=== PATIENT | female | born 2000 | race Caucasian/White ===

== ENCOUNTER 2021-11-05 11:50 | Emergency (ER) | payer BC, SELFPAY ==
[2021-11-05 12:00] VITALS: BP 108/73; PULSE 100; RESP 20; TEMP 36.8; O2SAT 99
[2021-11-05 12:11] VITALS: BP 108/73; PULSE 100; RESP 20; TEMP 36.8; O2SAT 99
--- NOTE | 2021-11-05 13:15 | ED.URI ---
HPI - URI/Sore Throat General Chief Complaint: Upper Respiratory Infection Stated Complaint: stuffy nose cough Time Seen by Provider: 11/05/21 13:16 Source: patient, RN notes reviewed and old records reviewed Mode of arrival: ambulatory Limitations: no limitations History of Present Illness HPI Narrative: 21-year-old female who presents to [facility] with complaints of post nasal drainage, productive cough, nasal congestion and sore throat for the past 5 days. Patient states she has had COVID vaccinations and she took a home test last night for COVID that was negative. Patent states that her throat is very sore states increased pain with swallowing, rates it 5/10, cough is productive of light yellow tinged mucous. Patient reports no known fevers, chills, or sweats. Patient denies any wheezing or any acute feelings of dyspnea or difficulty with her breathing, SAO2 99% on room air. 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 MD elicited complaint: cough, sore throat, rhinorrhea and nasal congestion Pertinent past history: asthma Related Data Allergies Allergy/AdvReac Type Severity Reaction Status Date / Time hydrocodone Allergy Hives Verified 11/05/21 12:11 brompheniramine AdvReac Hyperactive Verified 11/05/21 12:11 [From Dimetapp (brompheniramine-PPA)] phenylpropanolamine AdvReac Hyperactive Verified 11/05/21 12:11 [From Dimetapp (brompheniramine-PPA)] Review of Systems Review of Systems: CONSTITUTIONAL: Denies fever, chills, or sweats. EYES: Denies visual changes, redness, or discharge. ENT: Positive for rhinorrhea, congestion, sore throat, no otalgia. CARDIOVASCULAR: Denies chest pain, palpitations, or edema. RESPIRATORY:positive cough no dyspnea. GASTROINTESTINAL: Denies abdominal pain, nausea, vomiting, or diarrhea. GENITOURINARY: Denies dysuria or hematuria. SKIN: Denies rash or itching. MUSCULOSKELETAL: Denies back pain, joint pain, or myalgia. NEUROLOGIC: Denies headache, numbness, or weakness. PSYCHIATRIC: Denies anxiety or depression. All systems reviewed & are unremarkable except as noted in HPI and below PMFSH Past Medical History Medical History (Updated 11/06/21 @ 15:21 by Gisselle Tadeo NP) Asthma Ear infection Urinary reflux Surgical History Surgical History (Updated 11/06/21 @ 15:14 by Gisselle Tadeo NP) History of placement of ear tubes Family History Family History (Updated 11/06/21 @ 15:19 by Gisselle Tadeo NP) Father Anxiety Mother Anxiety Seizures Other Emphysema lung Social History Social History (Updated 11/06/21 @ 15:19 by Gisselle Tadeo NP) Smoking status: Unknown if ever smoked Alcohol intake: current Alcohol use details: social Substance use: unknown Living arrangements: with family Gender identity (if verbalized by the patient): Female Comments At time of signature, agree with nursing past medical, surgical, social and family history. There is no relevant family history pertinent to the presenting complaint Exam Narrative: GENERAL: Well-appearing, well-nourished, and in no acute distress. HEAD: Normocephalic, atraumatic. EYES: PERRLA and EOMI. ENT: Nares red with clear rhinorrhea no epistaxis. Mucous membranes moist.TM's normal with good light reflex, throat red with no lesion or exudates, tonsils red and swollen.post nasal drainage. NECK: Supple.no lymphadenopathy CHEST: Clear to auscultation. No respiratory distress.cough with some production SAO2 99% on room air HEART: Regular rate and rhythm. No murmur heard. Normal peripheral pulses. ABDOMEN: Soft, nontender, nondistended, normal active bowel sounds. EXTREMITIES: Normal range of motion. No edema. SKIN: Warm, dry, no rash. NEURO: No focal deficits. Alert and oriented x3. Course Course Level of Care: Express Care Visit Vital Signs Vital signs: Vital Signs Temperature 36.8 C 11/05/21 12:00 Pulse Rate 100 11/05/21 12:00 Respiratory Rate 20 01/0
== END 2021-11-05 13:48 | disposition home or self-care (01) ==
PROVIDERS: Emergency Provider Registered Nurse
DX: J06.9 Acute upper respiratory infection, unspecified (principal); J03.90 Acute tonsillitis, unspecified; Z20.822 Contact with and (suspected) exposure to COVID-19; J45.909 Unspecified asthma, uncomplicated
CPT/HCPCS: 87081; 87426; 87880; 99213; C9803; G0463

== ENCOUNTER 2021-12-22 20:41 | Emergency (ER) | payer OTHER, BC, SELFPAY ==
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
[2021-12-22 20:57] VITALS: BP 123/84; PULSE 92; RESP 18; TEMP 36.8; O2SAT 100
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
[2021-12-22 21:50] VITALS: BP 113/80; PULSE 82; RESP 14; TEMP 36.6; O2SAT 99
[2021-12-22 23:22] VITALS: BP 105/65; PULSE 77; RESP 14; TEMP 36.6; O2SAT 100
== END 2021-12-22 23:05 | disposition home or self-care (01) ==
PROVIDERS: Emergency Provider Nurse Practitioner Family
DX: S09.90XA Unspecified injury of head, initial encounter (principal); S39.012A Strain of muscle, fascia and tendon of lower back, initial encounter; J45.909 Unspecified asthma, uncomplicated; V49.40XA Driver injured in collision with unspecified motor vehicles in traffic accident, initial encounter
CPT/HCPCS: 70450; 72125; 72131; 99284

== ENCOUNTER 2022-04-19 11:03 | Emergency (ER) | payer BC, SELFPAY ==
[2022-04-19 11:09] VITALS: BP 106/63; PULSE 67; RESP 14; TEMP 36.8; O2SAT 100
--- NOTE | 2022-04-19 11:38 | ED.EAR ---
HPI - Ear Problem General Chief complaint: Ear Stated complaint: left ear pain Time Seen by Provider: 04/19/22 11:30 Source: patient and RN notes reviewed Mode of arrival: ambulatory Limitations: no limitations History of Present Illness HPI Narrative: 21 year old female presents with concern for left ear pain. She reports history of surgery many years ago in that ear and history of infections. MD Complaint: ear pain Location: left ear Related Data Home Medications Medication Instructions Recorded Confirmed etonogestrel 68 mg subdermal 1 implant subdermal ONCE 04/19/22 04/19/22 implant (Nexplanon) Allergies Allergy/AdvReac Type Severity Reaction Status Date / Time hydrocodone Allergy Hives Verified 04/19/22 11:17 brompheniramine AdvReac Hyperactive Verified 04/19/22 11:17 [From Dimetapp (brompheniramine-PPA)] phenylpropanolamine AdvReac Hyperactive Verified 04/19/22 11:17 [From Dimetapp (brompheniramine-PPA)] Review of Systems Review of Systems: CONSTITUTIONAL: Denies malaise, chills, sweats, or fever. EYES: Denies visual changes, redness, or discharge. ENT: Denies rhinorrhea, congestion, sinus pain, and sore throat. Reports left ear pain CARDIOVASCULAR: Denies chest pain, palpitations, or edema. RESPIRATORY: Denies cough. Denies dyspnea. GASTROINTESTINAL: Denies abdominal pain, nausea, vomiting, diarrhea SKIN: Denies rash or itching. MUSCULOSKELETAL: Denies myalgia. NEUROLOGIC: Denies headache. All systems reviewed & are unremarkable except as noted in HPI and below PMFSH Past Medical History Medical History Asthma Ear infection Urinary reflux Surgical History Surgical History History of placement of ear tubes Family History Family History Father Anxiety Mother Anxiety Seizures Other Emphysema lung Social History Social History Smoking status: Unknown if ever smoked Alcohol intake: current Alcohol use details: social Substance use: unknown Gender identity (if verbalized by the patient): Female Comments At time of signature, agree with nursing past medical, surgical, social and family history. There is no relevant family history pertinent to the presenting complaint Exam Narrative: GENERAL: Well-appearing, well-nourished, and in no acute distress. HEAD: Normocephalic EYES: PERRLA, conjunctivae clear ENT: Nares clear, turbinates edematous, clear discharge. Mucous membranes moist. Right TM pearly bañuelos with dull light reflex, left TM erythematous and bulging; no tragal tenderness. Oropharynx not erythematous without lesions. Tonsils not enlarged and without exudate, no drooling, no hoarseness, no trismus, uvula midline. NECK: Supple. No lymphadenopathy CHEST: Clear to auscultation, breath sounds equal. No wheezing, rhonchi, rales, or stridor. No respiratory distress, speaks in full sentences. HEART: Regular rate and rhythm. No murmur heard. SKIN: Warm, dry, no rash. NEURO: Alert and oriented x3. PSYCH: Normal mood and affect Course Course Emergency Course: Patient is aware of diagnosis, understands and agrees to treatment plan. Anticipatory guidance given. Patient agrees to follow-up as directed and is aware of reasons to seek care at the emergency department. Portions of this record may have been created with voice recognition software Level of Care: Express Care Visit Vital Signs Vital signs: Vital Signs Temperature 98.2 F 04/19/22 11:09 Pulse Rate 67 04/19/22 11:09 Respiratory Rate 14 04/19/22 11:09 Blood Pressure 106/63 04/19/22 11:09 Pulse Oximetry 100 04/19/22 11:09 Oxygen Delivery Room Air 04/19/22 11:09 Temperature 98.2 F 04/19/22 11:09 Pulse Rate 67 04/19/22 11:09 Respiratory Rate 1
== END 2022-04-19 11:43 | disposition home or self-care (01) ==
PROVIDERS: Emergency Provider Nurse Practitioner
DX: H66.92 Otitis media, unspecified, left ear (principal); J45.909 Unspecified asthma, uncomplicated
CPT/HCPCS: 99213; G0463

== ENCOUNTER 2022-10-05 15:44 | Outpatient (CLI) | payer BC, OTHER, SELFPAY ==
[2022-10-05 16:40] LABS: Influenza A QL RT-PCR Negative (Negative); Influenza B QL RT-PCR Negative (Negative); RSV RNA, RT-PCR Negative (Negative); SARS-CoV-2 RNA PCR Negative
== END 2022-10-05 15:45 | disposition home or self-care (01) ==
LOC: ANHLAB 15:46
PROVIDERS: PCP Family Medicine; Visit Provider Nurse Practitioner Family
DX: R68.89 Other general symptoms and signs (principal); Z20.822 Contact with and (suspected) exposure to COVID-19
CPT/HCPCS: 87637

== ENCOUNTER 2022-10-10 10:05 | Emergency (ER) | payer BC, OTHER, SELFPAY ==
--- NOTE | ~2022-10-10 | US_ITS ---
EXAMINATION: US pelvic complete w TV DATE: 10/10/2022 13:22 INDICATION: Abnormal uterine bleeding Comparison:Heavy bleeding for 7 days. Patient on control. Nexplanon. TECHNIQUE: Multiple transabdominal and endovaginal sonographic images of the pelvis performed. FINDINGS: The uterus measures 8.2 x 4.1 x 5.1 cm. The endometrial complex measures 5 mm. There is flu id in the cervix. The right ovary measures 2.7 x 1.3 x 1 cm and the left ovary measures 2.4 x 1.1 x 1.1 cm. There are small follicles in each ovary. Normal doppler signal in both ovaries. There is no free fluid in the pelvis. There are no abnormal masses seen on either side. IMPRESSION: 1. Unremarkable pelvic ultrasound. Reviewed, dictated and finalized at location A. O RECORDER MECHANIC
[2022-10-10 10:21] VITALS: BP 111/70; PULSE 109; RESP 14; TEMP 36.8; O2SAT 98
[2022-10-10 10:40] LABS: Basophils Percent Auto 0.5 % (0.2-1.2); Eosinophils Absolute Auto 0.1 K/mm3 (0-0.3); Eosinophils Percent Auto 1.2 % (0-4.4); Hematocrit 43.6 % (37.0-47.0); Hemoglobin 15.1 g/dL (12.0-15.0); Immature Granulocyte Absolute 0.02 K/mm3 (0.00-0.031); Immature Granulocyte Percent A 0.3 % (0-0.5); Lymphocytes Absolute Auto 1.22 K/mm3 (0.9-3.2); Lymphocytes Percent Auto 16.2 % (18.3-44.2); Mean Corpuscular HGB Conc 34.6 g/dl (32-36); Mean Corpuscular Hemoglobin 31.2 pg (26-34); Mean Corpuscular Volume 90.1 fl (80-100); Mean Platelet Volume 10.2 fl (7.4-10.4); Monocytes Absolute Auto 0.4 K/mm3 (0.1-0.6); Monocytes Percent Auto 5.4 % (2.6-8.5); Neutrophils Absolute Auto 5.8 K/mm3 (1.3-6.7); Neutrophils Percent Auto 76.4 % (45.5-73.1); Platelet Count Result 361 k/mm3 (150-375); Red Blood Count 4.84 M/mm3 (4.2-5.4); Red Cell Distribution Width 12.3 % (11.5-14.5); White Blood Count 7.6 K/mm3 (4.5-10.0)
[2022-10-10 11:09] VITALS: BP 126/81; PULSE 96; RESP 18; TEMP 36.5; O2SAT 100
[2022-10-10 11:38] VITALS: BP 112/75; BP 112/83; PULSE 91; PULSE 98
[2022-10-10 11:39] VITALS: BP 114/83; PULSE 108
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
[2022-10-10 12:10] LABS: Alanine Aminotransferase 31 U/L (6-35); Albumin Level 4.8 g/dL (3.5-5.1); Alkaline Phosphatase 77 U/L (38-126); Anion Gap 10 mmol/L (8-16); Aspartate Amino Transferase 32 U/L (14-36); Bilirubin,Total 0.8 mg/dL (0.2-1.3); Blood Urea Nitrogen 8 mg/dL (7-17); Calcium 9.2 mg/dL (8.4-10.2); Carbon Dioxide 25 mmol/L (22-30); Chloride 107 mmol/L (98-107); Estimated CRCL calculation 100 ml/min; Estimated Glomerular Filt Rate > 60; Glucose 88 mg/dL (65-110); Lipase 57 U/L (23-300); Potassium 4.1 mmol/L (3.4-5.0); Sodium 142 mmol/L (137-145)
[2022-10-10] MEDS: KETOROLAC 15 MG/ML VIAL (*BKC) IV PUSH (12:12)
[2022-10-10] MEDS: SODIUM CHLORIDE 0.9% IV 1,000 ML 999 ML IV CONT (12:12)
[2022-10-10 12:34] LABS: Beta HCG Quantitative < 2.39 mIU/ML
[2022-10-10 15:04] VITALS: BP 97/62; PULSE 73; RESP 16; TEMP 36.8; O2SAT 98
[2022-10-10] MEDS: ONDANSETRON INJ 4 MG/2 ML VIAL IV PUSH (15:19)
== END 2022-10-10 15:33 | disposition home or self-care (01) ==
PROVIDERS: Emergency Medicine; Emergency Provider Physician Assistant; PCP Nurse Practitioner Family
DX: N93.9 Abnormal uterine and vaginal bleeding, unspecified (principal); J45.909 Unspecified asthma, uncomplicated
CPT/HCPCS: 36415; 76830; 76856; 80053; 81025; 83690; 84702; 85025; 96361; 96374; 96375; 99284; J0131; J1885; J2405; J7030

== ENCOUNTER 2022-12-21 08:59 | Emergency (ER) | payer BC, OTHER, SELFPAY ==
[2022-12-21] VITALS (19 sets, daily range): BP systolic 98–117; BP diastolic 65–93; PULSE 57–88; RESP 12–22; TEMP 36.8; O2SAT 95–100
--- NOTE | ~2022-12-21 | CT_ITS ---
EXAMINATION: CTA chest PE protocol DATE: 12/21/2022 11:56 INDICATION: Shortness of breath. Palpitations. Positive d-dimer. TECHNIQUE: Computed tomography (CT) pulmonary angiogram of the chest was performed with 100 mL Omnipa que-350 intravenous contrast. Additional 3D reconstructions utilizing coronal maximum intensity proje ction (MIP) were performed. Automated exposure control and iterative reconstruction technique were em ployed. The dose-length product was 142.27 mGy-cm. COMPARISON: None FINDINGS: Excellent contrast opacification of the pulmonary arteries. There is mild streak artifact from dense contrast in the superior vena cava and right atrium. Mild scattered respiratory motion artifact which decreases sensitivity in some of the smaller basilar subsegmental pulmonary arteries. No pulmonary e mbolism identified. No pneumonia, pulmonary edema or other pulmonary infiltrates. No pleural effusion or pneumothorax. Heart size is normal. No pericardial effusion. Thoracic aorta is normal in caliber with no dissection. Calcified right hilar lymph nodes consistent with old granulomatous disease. Visu alized upper abdomen is unremarkable. A few Schmorl's nodes at the lower thoracic and upper lumbar sp ine. IMPRESSION: 1. No pulmonary embolism or other acute cardiopulmonary disease. Reviewed, dictated and finalized at location A. CTOR OF CLOUD SERVICES
--- NOTE | ~2022-12-21 | XR_ITS ---
EXAMINATION: XR chest 2V DATE: 12/21/2022 09:35 INDICATION: Heart palpitations, diaphoresis TECHNIQUE: PA and lateral views of the chest are obtained. COMPARISON: 12/28/2005 FINDINGS: The lungs are free of acute opacities. No pleural effusion or pneumothorax. The cardiomedia stinal silhouette is normal. The visualized bones and soft tissues are unremarkable. IMPRESSION: 1. No acute cardiopulmonary abnormality. Reviewed, dictated and finalized at location B. O PERFORMER
--- NOTE | 2022-12-21 09:06 | ECG_ITS ---
Measurements Intervals [place] Rate: 84 P: 41 UT: 125 QRS: 39 QRSD: 83 T: 12 QT: 354 QTc: 420 Interpretive Statements SINUS RHYTHM WITH SINUS ARRHYTHMIA NORMAL ELECTROCARDIOGRAM NO PREVIOUS ECG AVAILABLE FOR COMPARISON Electronically Signed On 12-21-2022 15:25:38 STOVE MECHANIC by Henrik Gipson M.D.
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
[2022-12-21 09:24] LABS: Basophils Percent Auto 0.7 % (0.2-1.2); Eosinophils Absolute Auto 0.1 K/mm3 (0-0.3); Eosinophils Percent Auto 2.4 % (0-4.4); Hematocrit 41.1 % (37.0-47.0); Hemoglobin 14.3 g/dL (12.0-15.0); Immature Granulocyte Absolute 0.02 K/mm3 (0.00-0.031); Immature Granulocyte Percent A 0.4 % (0-0.5); Lymphocytes Absolute Auto 1.55 K/mm3 (0.9-3.2); Lymphocytes Percent Auto 28.4 % (18.3-44.2); Mean Corpuscular HGB Conc 34.8 g/dl (32-36); Mean Corpuscular Hemoglobin 31.6 pg (26-34); Mean Corpuscular Volume 90.9 fl (80-100); Mean Platelet Volume 10.2 fl (7.4-10.4); Monocytes Absolute Auto 0.4 K/mm3 (0.1-0.6); Monocytes Percent Auto 7.7 % (2.6-8.5); Neutrophils Absolute Auto 3.3 K/mm3 (1.3-6.7); Neutrophils Percent Auto 60.4 % (45.5-73.1); Platelet Count Result 340 k/mm3 (150-375); Red Blood Count 4.52 M/mm3 (4.2-5.4); Red Cell Distribution Width 11.9 % (11.5-14.5); White Blood Count 5.5 K/mm3 (4.5-10.0)
[2022-12-21 09:34] LABS: Alanine Aminotransferase 19 U/L (6-35); Albumin Level 4.5 g/dL (3.5-5.1); Alkaline Phosphatase 66 U/L (38-126); Anion Gap 4 mmol/L (8-16); Aspartate Amino Transferase 24 U/L (14-36); Bilirubin,Total 0.6 mg/dL (0.2-1.3); Blood Urea Nitrogen 12 mg/dL (7-17); Calcium 8.8 mg/dL (8.4-10.2); Carbon Dioxide 26 mmol/L (22-30); Chloride 104 mmol/L (98-107); Estimated CRCL calculation 100 ml/min; Estimated Glomerular Filt Rate > 60; Glucose 79 mg/dL (65-110); Potassium 3.5 mmol/L (3.4-5.0); Sodium 134 mmol/L (137-145)
[2022-12-21 09:46] LABS: Troponin I < 0.012 ng/mL (0.000-0.034)
[2022-12-21] MEDS: SODIUM CHLORIDE 0.9% IV 1,000 ML 999 ML IV CONT (10:17)
[2022-12-21 10:52] LABS: Thyroid Stimulating Hormone 0.897 uIU/mL (0.465-4.680)
--- NOTE | 2022-12-21 11:53 | PC.NURSE ---
Patient off unit to CT.
== END 2022-12-21 13:03 | disposition home or self-care (01) ==
PROVIDERS: Emergency Provider Physician Assistant; PCP Nurse Practitioner Family
DX: R00.2 Palpitations (principal); R06.81 Apnea, not elsewhere classified; J45.909 Unspecified asthma, uncomplicated
CPT/HCPCS: 36415; 71046; 71275; 80053; 81025; 83735; 84443; 84484; 85025; 85380; 93005; 96360; 99284; J7030; Q9967

== ENCOUNTER 2023-02-19 00:05 | Day surgery (SDC) | payer BC, OTHER, SELFPAY ==
[2023-02-12 12:31] VITALS: BMI 23.6
--- NOTE | 2023-02-12 12:36 | PC.NURSE ---
Report to the Outpatient Waiting Room, entrance under the green pavilion located off [facility], at time 0645 on date 02/19/23. Planned Procedure Time: 0845. Time changes happen often and if your time is changed the preop area will call you the afternoon before. - You and your visitor will be asked to self-screen and do not enter if you have any COVID symptoms. - A mask is optional within the hospital at this time. Patients may have clear liquids (water, carbonated beverages, clear teas, apple juice) until 3 hours prior to surgery with a maximum of 20 ounces. - No food from midnight until time of surgery Take the following medications with a SIP of water the morning of surgery: NONE DO NOT STOP ANY OF YOUR OTHER PRESCRIPTION MEDICATIONS PRIOR TO SURGERY?EXCEPT THE FOLLOWING Medications to discontinue per physician: N/A Date to take last dose: N/A Please no make-up, nail french, hairspray, perfume, deodorant, or body powder the day of surgery. No jewelry (including any body piercings) or valuables the day of surgery, leave them at home. Please take a shower or bath the night before, or the morning of, surgery with an antibacterial soap. Wear comfortable, loose fitting clothing. - Jewelry must be removed prior to entering the operating room. Rings and piercings that are not removed may be cut off. - The hospital will not accept responsibility for valuables. - Please leave all valuables, including medications, at home the day of surgery. If you are going home after surgery, a licensed rear load truck driver must drive you home. - NO public transportation without another adult if you receive anesthesia. - We recommend that an adult stay with you for 24 hours following discharge. - We also recommend that you do not drive, make important decision, drink alcoholic beverages, or take any drugs that were not prescribed by your health care provider for at least 24 hours after your discharge time. Follow any additional instructions given to you from your surgeon. If you or anyone in your household have experienced Covid symptoms in the past week, please notify your surgeon or the nurse liaison at the phone number below for possible testing. Telephone instructions given to PT - BENTLEY POWERS and asked if any additional questions and then verbalized understanding. Patient advised to call surgeon office or pre surgery nurse liaison [phone] if any additional questions.
--- NOTE | 2023-02-18 19:08 | PM.IMHP ---
H&P: HPI History of Present Illness Date/Time: 02/18/23 19:08 Chief Complaint: big tonsils can not breathe nasal obstruction nasal congestion septal deviation turbinate hypertrophy dysphagia sleep disordered breathing recurrent tonsillar Narrative: planned procedure Review of Systems Review of Systems: All systems reviewed & are unremarkable except as noted in HPI and below [facility] Past Medical History Medical History ADHD Asthma Depression Ear infection Nexplanon removal (~10/01/22) Urinary reflux Surgical History Surgical History History of ear surgery History of placement of ear tubes Hx of shoulder surgery right pectoral transfer, sternal head to scapula - volleyball injury Family History Family History Father Anxiety Depression Mother Anxiety Seizures Depression Grandparent Heart disease Asthma Cancer Depression Mother Depression Father Depression Other Breast cancer Emphysema lung Social History Social History Smoking status: Never smoker Alcohol intake: current Drinks per week: 1 Alcohol use details: social Substance use: never Substance use type: does not use Lack of Transportation: No Lack of Food: Never True Current Housing: I Have Housing Concerned About Future Housing: No Difficulty Paying Gas/Electric Bills: No Difficulty Paying for Meds: No Currently Unemployed: No Education: High School Diploma/GED Difficulty w/ Childcare or Family Care: No Living arrangements: with family Occupation/Education: occupation Gender identity (if verbalized by the patient): Female Sexual Orientation (if Verbalized by the Patient): Straight or Heterosexual Spiritual care concerns: No Agree to blood products: Yes Meds Home Medications and Allergies Home Medications Medication Instructions Recorded Confirmed Type ethynodiol diacetate-ethinyl 1 tablet PO DAILY #84 tabs 02/14/23 Rx estradiol 1 mg-35 mcg tablet (Zovia) Allergies Allergy/AdvReac Type Severity Reaction Status Date / Time hydrocodone Allergy Hives Verified 02/14/23 12:53 brompheniramine AdvReac Hyperactive Verified 02/14/23 12:53 [From Dimetapp (brompheniramine-PPA)] phenylpropanolamine AdvReac Hyperactive Verified 02/14/23 12:53 [From Dimetapp (brompheniramine-PPA)] tramadol AdvReac Other Verified 02/14/23 12:53 Exam Narrative: Septal deviation turbinate hypertrophy tonsillar hypertrophy Assessment and Plan Assessment and plan (1) Tonsillar hypertrophy: Code(s): J35.1 - Hypertrophy of tonsils Status: Acute Assessment and Plan: plan OR tonsillectomy septoplasty turbinate reduction with outfracture.? Risks discussed including bleeding infection postoperative bleeding pain of any structure damage to any structure above the clavicles damage to any structure by Anesthesia involved in the maintenance and/or induction of anesthesia.? Need for postoperative pain medication as well as antibiotics septal perforation change to nasal cosmesis saddle nose deformity CSF leak brain damage brain change in vision blindness failure to resolve symptoms patient voiced understanding agreed every risks discussed change in taste change in how they feel change in swallow damage to any structure by Anesthesia damage to any structure by myself need for further procedures 3-5% chance of postoperative bleeding blindness change in vision brain damage CSF leak septal perforation (2) Recurrent tonsillitis: Code(s): J03.91 - Acute recurrent tonsillitis, unspecified Status: Acute (3) Nasal septal deviation: Code(s): J34.2 - Deviated nasal septum Status: Acute (4) Hypertrophy of kingsley
--- NOTE | 2023-02-19 07:25 | WPDHPUPDATE1 ---
History and Physical Update Update Date/Time: 02/19/23 07:25 History and Physical has been reviewed, including an updated exam of the patient. There are NO changes in the patient's condition. Risks, benefits, and alternatives have been discussed and questions answered. Patient agrees to proceed with procedure.
[2023-02-19] MEDS: ACETAMINOPHEN 500 MG TABLET 1000 MG PO (07:55)
[2023-02-19 08:21] VITALS: BP 110/79; PULSE 82; RESP 14; TEMP 36.9; O2SAT 100
[2023-02-19] MEDS: LACTATED RINGERS 1,000 ML 30 ML IV CONT ×2 (08:25→11:52)
--- NOTE | 2023-02-19 08:37 | WPDANESEPPF ---
Anes - Initial Pre Proc Eval Procedure: Operation Date: 02/19/23 08:45 Proposed Procedures p Tonsillectomy - Jacek Rodriguez MD s Bilateral Inferior Turbinectomy with Outfracture - Jacek Rodriguez MD s Endoscope Septoplasty - Jacek Rodriguez MD Date/Time: 02/19/23 08:37 Surgeon: Jacek Rodriguez MD Pre Op Diagnosis: Hyp Tonsils, Dev Septum Tur Hypertrophy Patient Data Age: 22 Gender: F Height: 1.57 m Weight: 58.5 kg Last Vital Signs Temp 36.9 C 02/19/23 08:21 Pulse 82 02/19/23 08:21 Resp 14 02/19/23 08:21 BP 110/79 02/19/23 08:21 Pulse Ox 100 02/19/23 08:21 O2 Del Method Room Air 02/19/23 08:21 Allergies Allergy/AdvReac Type Severity Reaction Status Date / Time hydrocodone Allergy Hives Verified 02/14/23 12:53 brompheniramine AdvReac Hyperactive Verified 02/14/23 12:53 [From Dimetapp (brompheniramine-PPA)] phenylpropanolamine AdvReac Hyperactive Verified 02/14/23 12:53 [From Dimetapp (brompheniramine-PPA)] tramadol AdvReac Other Verified 02/14/23 12:53 Home Medications Medication Instructions Recorded Confirmed Type ethynodiol diacetate-ethinyl 1 tablet PO DAILY #84 tabs 02/14/23 Rx estradiol 1 mg-35 mcg tablet (Zovia) Patient hx anesthesia problems: none Family hx anesthesia problems: none Results Review: All pre-operative results and documents have been reviewed as part of the pre-operative evaluation. [facility]LY [facility] Past Medical History Medical History ADHD Asthma Depression Ear infection Nexplanon removal (~10/01/22) Urinary reflux Surgical History Surgical History History of ear surgery History of placement of ear tubes Hx of shoulder surgery right pectoral transfer, sternal head to scapula - volleyball injury Family History Family History Father Anxiety Depression Mother Anxiety Seizures Depression Grandparent Heart disease Asthma Cancer Depression Mother Depression Father Depression Other Breast cancer Emphysema lung Social History Social History Smoking status: Never smoker Alcohol intake: current Drinks per week: 1 Alcohol use details: social Substance use: never Substance use type: does not use Lack of Transportation: No Lack of Food: Never True Current Housing: I Have Housing Concerned About Future Housing: No Difficulty Paying Gas/Electric Bills: No Difficulty Paying for Meds: No Currently Unemployed: No Education: High School Diploma/GED Difficulty w/ Childcare or Family Care: No Living arrangements: with family Occupation/Education: occupation Gender identity (if verbalized by the patient): Female Sexual Orientation (if Verbalized by the Patient): Straight or Heterosexual Spiritual care concerns: No Agree to blood products: Yes Anes - Eval Final PreProcedure Day of Procedure 02/19/23 08:37 Patient weight: normal Heart: regular rate and rhythm Lungs: clear to auscultation Airway: Mallampati scale class 1 Neurological: alert and oriented Last oral intake: >/= 8 hours ASA classification: II Emergent: no Anesthetic plan: proceed Anesthesia type and monitoring: general ETT and standard monitoring Results Review: All pre-operative results and documents have been reviewed as part of the pre-operative evaluation. Informed Consent: The patient's anesthetic plan and its attendant risks and benefits were discussed with the patient/family/POA. Questions were solicited and answers provided to the satisfaction of the patient/family/POA.
[2023-02-19] MEDS: ceFAZolin 2 GM/D5W 50 ML 2 GM/50 ML BAG IVPB (09:19)
[2023-02-19] MEDS: OXYMETAZOLINE HCL 0.05% NAS 15 ML BTL (*BKC) 1 SPRAY NASAL (09:55)
--- NOTE | 2023-02-19 10:55 | SUR.OPER ---
Addendum entered by Autumn Cox RN 02/19/23 11:31: Patient was monitored by MANAGER PACU while surgeon was out of the room. Original Note: 10:39 Dr Rodriguez called to Emergency Department for Emergency Airway placement. 10:53 Dr Rodriguez back in surgical room to complete procedure.
[2023-02-19] MEDS: MUPIROCIN 2% OINT 22 GM TUBE 1 APPLIC EACH NARE (11:02)
[2023-02-19] MEDS: LIDO 1%/EPINEPHRINE 1:100,000 50 ML VIAL 20 ML INFILTRATE (11:26)
[2023-02-19 11:52] VITALS: BP 108/69; PULSE 82; RESP 18; TEMP 37.1; O2SAT 100
[2023-02-19 12:05] VITALS: BP 102/67; PULSE 88; RESP 16; O2SAT 99
[2023-02-19 12:15] VITALS: BP 104/68; PULSE 110; RESP 16; O2SAT 99
--- NOTE | 2023-02-19 12:24 | P.OP_ITS ---
Procedure Note - Detailed Date of Procedure 02/19/23 Pre-op Diagnosis Hyp Tonsils, Dev Septum Tur HypertrophySleep disordered breathing recurrent tonsillitis nasal obstruction nasal congestion Post-op Diagnosis Same Procedure Performed endoscopic assisted septoplasty inferior turbinate reduction with outfracture bilateral tonsillectomy bilateral Surgeon Jacek Rodriguez MD Anesthesia General Indications see above Findings severely deviated left nasal septum well reduced linear perforation over the spur covered nicely when Gant splints were placed turbinates very hypertrophied very bony well reduced good airway following procedure. Tonsils hypertrophic really endophytic blocking the airway minimal bleeding intraoperative Description of Procedure patient identified consent verified. Patient brought operating. Time-out performed. Patient prepped draped position procedure confirm 2nd time-out performed. 10 cc 1% local 1% lidocaine with [id number] parts epinephrine injected in the nasal septum bilaterally as well as inferior turbinates anteriorly. Afrin-soaked pledgets placed in the bilateral nasal passages allowed to sit for 5 minutes then removed. 0 degree endoscope utilized. Left-sided Mayfair incision made anterior to the deviation. Left nasal septal flap elevated with 7 [place] suction linear tear over the spur. Osteotome utilized to cross over right nasal septal flap elevated no perforation. Deviated septum removed with osteotome [employer] Morales forceps Pilar forceps. Mayfair incision closed with 2 interrupted 5 0 fast gut sutures. Lots redundant tissue was put back over the per for the linear perforation. Turbinates reduced in the submucosal plane using microdebrider the puncture point was cauterized with Bovie suction electrocautery at a setting of 15 for 2nd. Turbinates were then outfractured. Total blood loss about 22 cc. Bed was then rotated patient again prepped position. A sorry Gant splints were placed in the nose sutured anteriorly using a 3-0 interrupted nylon suture. McIvor mouth gag inserted revealing large tonsils. They were removed bilaterally in extracapsular plane using Bovie electrocautery at a setting of 10. Any bleeding vessels were cauterized using Bovie suction electrocautery at a setting of 12. In between tonsils a McIvor mouth gag was lowered to allow blood flow to return to the tongue. Following tonsillectomy the McIvor mouth gag was lowered and reopened 30 seconds later to reveal no further bleeding. Care the patient given Anesthesiology. McIvor mouth gag removed. I performed all dictated portions the procedure. No complications. Patient taken to PACU. Blood loss from the tonsils about 3 cc. Total blood loss about 25 cc. Estimated Blood Loss 25 Drains No Packing No Pathology None sent Complications No immediate complications Condition Stable Disposition PACU [facility] Billing Surgery - Charge Forward: Surgery Billing
[2023-02-19] MEDS: fentaNYL CITRATE INJ (*CRX) 100 MCG/2 ML VIAL 25 MCG IV PUSH ×3 (12:28→12:58)
[2023-02-19 12:45] VITALS: BP 104/81; PULSE 64; RESP 12; O2SAT 98
[2023-02-19 13:15] VITALS: BP 106/67; PULSE 80; RESP 16
[2023-02-19] MEDS: ONDANSETRON INJ 4 MG/2 ML VIAL IV PUSH (13:31)
== END 2023-02-19 13:52 | disposition home or self-care (01) ==
PROVIDERS: PCP Nurse Practitioner Family; Visit Provider Otolaryngology
PROC: (CPT 42826; principal; 2023-02-19 08:45)
PROC: (CPT 42826; 2023-02-19 08:45)
PROC: (CPT 30520; 2023-02-19 08:45)
DX: J35.1 Hypertrophy of tonsils (principal); J34.2 Deviated nasal septum; J34.3 Hypertrophy of nasal turbinates; R09.81 Nasal congestion; J34.89 Other specified disorders of nose and nasal sinuses
CPT/HCPCS: 42826; 30520; 30140; 88302; A9270; J0690; J1100; J2250; J2370; J2405; J2704; J3010; J7120

== ENCOUNTER 2023-02-28 12:31 | Outpatient (CLI) | payer BC, OTHER, SELFPAY ==
--- NOTE | 2023-02-28 12:38 | ECHO_ITS ---
Patient Info Name: Matilde Warren Age: 22 years : 2000 Gender: Female Ht: 62 in Wt: 123 lbs BSA: 1.57 m2 HR: 73 bpm BP: 117 / 78 mmHg Heart Rhythm: Sinus Rhythm Exam Date: 02/28/2023 12:45 PM Exam Location: [facility] Pulmonary Patient Status: Outpatient Admit Date: 02/28/2023 Staff Ordering Physician: Cholo Felton DO Director Business Management: Chuyita Pedroza RDCS Attending Provider: Cholo Felton DO Exam Type: CA echo doppler color flow Study Info Indications R42 - Dizziness and giddiness Complete two-dimensional, color flow and Doppler transthoracic echocardiogram is performed. Summary 1. Complete two-dimensional, color flow and Doppler transthoracic echocardiogram is performed. 2. Left ventricular chamber dimension is normal. 3. Left ventricular systolic function is normal, estimated at 60-65%. 4. The left ventricular diastolic function is normal. 5. E/e' 6 is not elevated. 6. There is trace aortic valve regurgitation. 7. There is trace mitral valve regurgitation. 8. There is trace tricuspid valve regurgitation. 9. No pulmonary hypertension, estimated pulmonary arterial systolic pressure is 23 mmHg. 10. There is trace pulmonic regurgitation. Left Ventricle E/e' 6 is not elevated. Left ventricular chamber dimension is normal. Left ventricular systolic function is normal, estimated at 60-65%. The left ventricular diastolic function is normal. Right Ventricle Right ventricular systolic function is normal and with normal TAPSE 2.4 cm. Right ventricular chamber dimension is normal. Left Atria Left atrial chamber dimension is normal. Right Atria Right atrial chamber dimension is normal. Aortic Valve The aortic valve is trileaflet. There is no aortic valve stenosis. There is trace aortic valve regurgitation. Pulmonic Valve There is trace pulmonic regurgitation. Mitral Valve There is no mitral valve stenosis. There is trace mitral valve regurgitation. Tricuspid Valve There is trace tricuspid valve regurgitation. No pulmonary hypertension, estimated pulmonary arterial systolic pressure is 23 mmHg. Pericardium/Pleural There is no pericardial effusion. Inferior Vena Cava Normal inferior vena cava with >50% collapse upon inspiration consistent with normal right atrial pressure, 5 mmHg. Aorta The aortic root size at the sinus of Valsalva is normal. Left Ventricular Outflow Tract Name Value Normal LVOT 2D LVOT Diameter 1.6 cm LVOT Doppler LVOT Peak Gradient 6 mmHg LVOT Mean Gradient 3 mmHg LVOT VTI 29 cm LVOT VTI/AV VTI Ratio 0.9 LVOT Stroke Volume 58 ml LVOT CO 2.5 l/min LVOT CI 1.6 l/min/m2 Pulmonic Valve Name Value Normal RVOT Doppler RVOT Peak Gradient 2 mmHg PV Doppler
== END 2023-02-28 12:32 | disposition home or self-care (01) ==
PROVIDERS: PCP Nurse Practitioner Family; Visit Provider Internal Medicine Cardiovascular Disease
DX: R42 Dizziness and giddiness (principal)
CPT/HCPCS: 93306

== ENCOUNTER 2023-03-15 00:29 | Day surgery (SDC) | payer BC, OTHER, SELFPAY ==
[2023-03-13 10:47] VITALS: BMI 23.6
--- NOTE | 2023-03-13 10:47 | PC.NURSE ---
Report to the Outpatient Waiting Room, entrance under the green pavilion located off [facility], at time 1100 on date 03/15/23. Planned Procedure Time: 1300. Time changes happen often and if your time is changed the preop area will call you the afternoon before. - You and your visitor will be asked to self-screen and do not enter if you have any COVID symptoms. - A mask is optional within the hospital at this time. Patients may have clear liquids (water, carbonated beverages, clear teas, apple juice) until 3 hours prior to surgery with a maximum of 20 ounces. - No food from midnight until time of surgery Take the following medications with a SIP of water the morning of surgery: NONE DO NOT STOP ANY OF YOUR OTHER PRESCRIPTION MEDICATIONS PRIOR TO SURGERY EXCEPT THE FOLLOWING Medications to discontinue per physician: N/A Date to take last dose: N/A Please no make-up, nail pashto, hairspray, perfume, deodorant, or body powder the day of surgery. No jewelry (including any body piercings) or valuables the day of surgery, leave them at home. Please take a shower or bath the night before, or the morning of, surgery with an antibacterial soap. Wear comfortable, loose fitting clothing. - Jewelry must be removed prior to entering the operating room. Rings and piercings that are not removed may be cut off. - The hospital will not accept responsibility for valuables. - Please leave all valuables, including medications, at home the day of surgery. If you are going home after surgery, a licensed cdl truck driver must drive you home. - NO public transportation without another adult if you receive anesthesia. - We recommend that an adult stay with you for 24 hours following discharge. - We also recommend that you do not drive, make important decision, drink alcoholic beverages, or take any drugs that were not prescribed by your health care provider for at least 24 hours after your discharge time. Follow any additional instructions given to you from your surgeon. If you or anyone in your household have experienced Covid symptoms in the past week, please notify your surgeon or the nurse liaison at the phone number below for possible testing. Telephone instructions given to PT - BENTLEY POWERS and asked if any additional questions and then verbalized understanding. Patient advised to call surgeon office or pre surgery nurse liaison [phone] if any additional questions.
--- NOTE | 2023-03-14 08:05 | PM.IMHP ---
H&P: HPI History of Present Illness Date/Time: 03/14/23 08:05 Chief Complaint: Nasal obstruction nasal congestion nasal bone fractures Narrative: planned procedure somewhat urgent Review of Systems Review of Systems: All systems reviewed & are unremarkable except as noted in HPI and below [facility] Past Medical History Medical History ADHD Asthma Depression Ear infection Nexplanon removal (~10/01/22) Urinary reflux Surgical History Surgical History History of ear surgery History of placement of ear tubes Hx of shoulder surgery right pectoral transfer, sternal head to scapula - volleyball injury Family History Family History Father Anxiety Depression Mother Anxiety Seizures Depression Grandparent Heart disease Asthma Cancer Depression Mother Depression Father Depression Other Breast cancer Emphysema lung Social History Social History Smoking status: Never smoker Alcohol intake: current Drinks per week: 1 Alcohol use details: social Substance use: never Substance use type: does not use Lack of Transportation: No Lack of Food: Never True Current Housing: I Have Housing Concerned About Future Housing: No Difficulty Paying Gas/Electric Bills: No Difficulty Paying for Meds: No Currently Unemployed: No Education: High School Diploma/GED Difficulty w/ Childcare or Family Care: No Living arrangements: with family Occupation/Education: occupation Gender identity (if verbalized by the patient): Female Sexual Orientation (if Verbalized by the Patient): Straight or Heterosexual Spiritual care concerns: No Agree to blood products: Yes Meds Home Medications and Allergies Home Medications Medication Instructions Recorded Confirmed Type ethynodiol diacetate-ethinyl 1 tablet PO DAILY #84 tabs 02/14/23 03/13/23 Rx estradiol 1 mg-35 mcg tablet (Zovia) mupirocin 2 % topical ointment 1 applic topical BID 03/13/23 03/13/23 History Allergies Allergy/AdvReac Type Severity Reaction Status Date / Time hydrocodone Allergy Hives Verified 03/13/23 10:46 brompheniramine AdvReac Hyperactive Verified 03/13/23 10:46 [From Dimetapp (brompheniramine-PPA)] phenylpropanolamine AdvReac Hyperactive Verified 03/13/23 10:46 [From Dimetapp (brompheniramine-PPA)] tramadol AdvReac Other Verified 03/13/23 10:46 Exam Narrative: a nasal deformity right concave left convex septal deviation on the left caudally Assessment and Plan Assessment and plan (1) Nasal bone fracture: Code(s): S02.2XXA - Fracture of nasal bones, initial encounter for closed fracture Status: Acute Assessment and Plan: OR for closed reduction nasal bone fracture possible revision septoplasty will have to examine intraoperatively. Risks were discussed including much higher rate of nonhealing much higher rate of cosmetic deformity given the caudal nature of the deviation failure to reduce nasal bone fractures with her not actually broken in this is due to edema. Bleeding infection septal perforation need for further per feed spur further procedures postoperative time off work time off school pain damage to any structure above the clavicles by myself damage to any structure in the induction and remains of anesthesia. (2) Nasal septal deviation: Code(s): J34.2 - Deviated nasal septum Status: Acute (3) Nasal trauma: Code(s): S09.92XA - Unspecified injury of nose, initial encounter Status: Acute
--- NOTE | 2023-03-14 16:03 | WPDANESEPPF ---
Anes - Initial Pre Proc Eval Procedure: Operation Date: 03/15/23 13:00 Proposed Procedures p Closed Reduction Nasal Fracture, - Jacek Rodriguez MD s Septoplasty - Jacek Rodriguez MD Date/Time: 03/14/23 16:03 Surgeon: Jacek Rodriguez MD Pre Op Diagnosis: nasal fx, septal deviation Patient Data Age: 22 Gender: F Height: 1.57 m Weight: 58.5 kg Allergies Allergy/AdvReac Type Severity Reaction Status Date / Time hydrocodone Allergy Hives Verified 03/13/23 10:46 brompheniramine AdvReac Hyperactive Verified 03/13/23 10:46 [From Dimetapp (brompheniramine-PPA)] phenylpropanolamine AdvReac Hyperactive Verified 03/13/23 10:46 [From Dimetapp (brompheniramine-PPA)] tramadol AdvReac Other Verified 03/13/23 10:46 Home Medications Medication Instructions Recorded Confirmed Type ethynodiol diacetate-ethinyl 1 tablet PO DAILY #84 tabs 02/14/23 03/13/23 Rx estradiol 1 mg-35 mcg tablet (Zovia) mupirocin 2 % topical ointment 1 applic topical BID 03/13/23 03/13/23 History Patient hx anesthesia problems: none Family hx anesthesia problems: none Results Review: All pre-operative results and documents have been reviewed as part of the pre-operative evaluation. [facility] Past Medical History Medical History ADHD Asthma Depression Ear infection Nexplanon removal (~10/01/22) Urinary reflux Surgical History Surgical History History of ear surgery History of placement of ear tubes Hx of shoulder surgery right pectoral transfer, sternal head to scapula - volleyball injury Family History Family History Father Anxiety Depression Mother Anxiety Seizures Depression Grandparent Heart disease Asthma Cancer Depression Mother Depression Father Depression Other Breast cancer Emphysema lung Social History Social History Smoking status: Never smoker Alcohol intake: current Drinks per week: 1 Alcohol use details: social Substance use: never Substance use type: does not use Lack of Transportation: No Lack of Food: Never True Current Housing: I Have Housing Concerned About Future Housing: No Difficulty Paying Gas/Electric Bills: No Difficulty Paying for Meds: No Currently Unemployed: No Education: High School Diploma/GED Difficulty w/ Childcare or Family Care: No Living arrangements: with family Occupation/Education: occupation Gender identity (if verbalized by the patient): Female Sexual Orientation (if Verbalized by the Patient): Straight or Heterosexual Spiritual care concerns: No Agree to blood products: Yes Anes - Eval Final PreProcedure Day of Procedure 03/14/23 16:03 Patient weight: normal Heart: regular rate and rhythm Lungs: clear to auscultation Airway: Mallampati scale class 1 Neurological: alert and oriented Last oral intake: >/= 8 hours ASA classification: II Emergent: no Anesthetic plan: proceed Anesthesia type and monitoring: general ETT and standard monitoring Results Review: All pre-operative results and documents have been reviewed as part of the pre-operative evaluation. Informed Consent: The patient's anesthetic plan and its attendant risks and benefits were discussed with the patient/family/POA. Questions were solicited and answers provided to the satisfaction of the patient/family/POA.
[2023-03-15] VITALS (10 sets, daily range): BP systolic 104–124; BP diastolic 65–95; PULSE 51–117; RESP 10–19; TEMP 36.1–36.6; O2SAT 99–100
--- NOTE | 2023-03-15 07:21 | WPDHPUPDATE1 ---
History and Physical Update Update Date/Time: 03/15/23 07:21 History and Physical has been reviewed, including an updated exam of the patient. There are NO changes in the patient's condition. Risks, benefits, and alternatives have been discussed and questions answered. Patient agrees to proceed with procedure. Other than possible closed reduction of septum as well
[2023-03-15] MEDS: ACETAMINOPHEN 500 MG TABLET 1000 MG PO (11:20)
[2023-03-15] MEDS: LACTATED RINGERS 1,000 ML 30 ML IV CONT ×2 (11:20→14:50)
[2023-03-15] MEDS: ceFAZolin 2 GM/D5W 50 ML 2 GM/50 ML BAG IVPB (13:07)
[2023-03-15] MEDS: LIDO 2%/EPINEPHRINE 1:100,000 50 ML VIAL 10 ML INFILTRATE (13:24)
[2023-03-15] MEDS: OXYMETAZOLINE HCL 0.05% NAS 15 ML BTL (*BKC) 1 SPRAY NASAL (13:24)
[2023-03-15] MEDS: MUPIROCIN 2% OINT 22 GM TUBE 1 APPLIC EACH NARE (13:31)
[2023-03-15] MEDS: fentaNYL CITRATE INJ (*CRX) 100 MCG/2 ML VIAL 25 MCG IV PUSH ×6 (14:38→15:29)
--- NOTE | 2023-03-15 14:49 | W.PM.PROC2 ---
Procedure Note - Detailed Date of Procedure 03/15/23 Pre-op Diagnosis nasal fx, septal deviation Post-op Diagnosis Same Procedure Performed Closed reduction nasal septal fracture revision septoplasty Surgeon Jacek Rodriguez MD Anesthesia General Indications see above Findings caudal septum was again broken deviated able to be reduced had to revise removed small piece of cartilage much better airway right nasal bone outfractured left infractured patient tolerated procedure well minimal bleeding Description of Procedure patient identified consent verified. Patient brought operating. Time-out performed. General anesthesia induced endotracheal tube secured. Patient prepped reposition procedure confirmed 2nd time-out performed. Afrin-soaked pledgets placed for 5 minutes then removed. [place] elevator utilized to outfracture right nasal bone left infractured. Gelfoam placed in a taco fashion beneath the right nasal bone adding support. [place] incision made after injection of 3 cc 1% lidocaine 1 100,000 parts epinephrine new deviated caudal septal cartilage removed with osteotome and 15 blade. Johnnie incision closed with 3 interrupted 5 0 fast gut sutures. Gant splints trimmed then placed sutured anteriorly using a mattressed 3-0 nylon suture. I performed all dictated portions of procedure no complications blood loss 5 cc. Patient taken to PACU. Estimated Blood Loss 5 Drains No Packing Yes ( Gelfoam) Pathology None sent Complications No immediate complications Condition Stable Disposition PACU [facility] Billing Surgery - Charge Forward: Surgery Billing
[2023-03-15] MEDS: ONDANSETRON INJ 4 MG/2 ML VIAL IV PUSH (15:45)
[2023-03-15] MEDS: oxyCODONE HCL (*CRX) 5 MG TAB IR PO (15:55)
== END 2023-03-15 16:57 | disposition home or self-care (01) ==
PROVIDERS: PCP Nurse Practitioner Family; Visit Provider Otolaryngology
PROC: 0NSBXZZ Reposition Nasal Bone, External Approach (ICD-10-PCS; CPT 21315; principal; 2023-03-15 13:00)
PROC: (CPT 30520; 2023-03-15 13:00)
DX: S02.2XXA Fracture of nasal bones, initial encounter for closed fracture (principal); J34.2 Deviated nasal septum; X58.XXXA Exposure to other specified factors, initial encounter
CPT/HCPCS: 21320; 30520; A9270; J0330; J0690; J1100; J2250; J2405; J2704; J3010; J7120

== ENCOUNTER 2023-04-25 20:51 | Emergency (ER) | payer BC, OTHER, SELFPAY ==
--- NOTE | ~2023-04-25 | CT_ITS ---
EXAMINATION: CT facial bones wo con DATE: 04/25/2023 22:10 INDICATION: Nose trauma, can't breath thru nose . TECHNIQUE: Computed tomography (CT) of the facial bones and maxillofacial region was performed withou t intravenous contrast. Automated exposure control and iterative reconstruction technique were employ ed. The dose-length product was 297.68 mGy-cm. COMPARISON: None. FINDINGS: Soft Tissues: No significant superficial soft tissue swelling. Facial bones: Minimal fragmentation of the maxillary spine. No other definite or potential fracture detected. No lytic or blastic process. Eyes: The globes are intact. The soft tissue planes of the orbits are maintained. Paranasal Sinuses: Moderate leftward bowing of the cartilaginous nasal septum. Soft tissue thickening of the anterosuperior aspect of the nasal septum up to 1 cm. The nasal passages remain patent. The v isualized aerated spaces are clear. Foreign Bodies: No radiopaque foreign bodies. Other Findings: None. IMPRESSION: Mild fragmentation of the maxillary spine, may represent a small minimally displaced fracture if acco mpanied by acute pain/tenderness. Soft tissue thickening of the anterosuperior nasal septum may represent mucosal edema or a small sept al hematoma, correlate with direct visualization. Reviewed, dictated and finalized at location K. IMPRESSION: Mild fragmentation of the maxillary spine, may represent a small minimally disp laced fracture if accompanied by acute pain/tenderness. Soft tissue thickening of the anterosuperior nasal septum may represent mucosal edema or a small septal hematoma, correlate with direct visualization.
[2023-04-25 20:57] VITALS: BP 116/61; PULSE 93; RESP 16; TEMP 36.6; O2SAT 98
--- NOTE | 2023-04-25 23:55 | ED.GENADULT ---
HPI - General Adult General Chief complaint: Head Injury Stated complaint: nose pain Time Seen by Provider: 04/25/23 23:38 History of Present Illness HPI narrative: This is a 22-year-old female presenting ED after her dog jumped into her face and hit her in the nose. Patient has had multiple nasal bone fractures in the past. She follows with Dr. Rodriguez and has a good relationship with him. She says she is having difficulty breathing through the right nostril. No other injuries. Related Data Allergies Allergy/AdvReac Type Severity Reaction Status Date / Time hydrocodone Allergy Hives Verified 04/04/23 13:31 brompheniramine AdvReac Hyperactive Verified 04/04/23 13:31 [From Dimetapp (brompheniramine-PPA)] phenylpropanolamine AdvReac Hyperactive Verified 04/04/23 13:31 [From Dimetapp (brompheniramine-PPA)] tramadol AdvReac Other Verified 04/04/23 13:31 PMFSH Past Medical History Medical History ADHD Asthma Depression Ear infection Nexplanon removal (~10/01/22) Urinary reflux Surgical History Surgical History History of ear surgery History of placement of ear tubes Hx of shoulder surgery right pectoral transfer, sternal head to scapula - volleyball injury Family History Family History Father Anxiety Depression Mother Anxiety Seizures Depression Grandparent Heart disease Asthma Cancer Depression Mother Depression Father Depression Other Breast cancer Emphysema lung Social History Social History Smoking status: Never smoker Alcohol intake: current Drinks per week: 1 Alcohol use details: social Substance use: never Substance use type: does not use Lack of Transportation: No Lack of Food: Never True Current Housing: I Have Housing Concerned About Future Housing: No Difficulty Paying Gas/Electric Bills: No Difficulty Paying for Meds: No Currently Unemployed: No Education: High School Diploma/GED Difficulty w/ Childcare or Family Care: No Living arrangements: with family Occupation/Education: occupation Gender identity (if verbalized by the patient): Female Sexual Orientation (if Verbalized by the Patient): Straight or Heterosexual Spiritual care concerns: No Agree to blood products: Yes Exam Narrative: APPEARANCE: No apparent distress. Head: atraumatic. EYES: EOMI, NOSE: No significant ecchymosis or swelling. No evidence of septal hematoma. NECK: Trachea midline RESPIRATORY: No increased rate of breathing CARDIOVASCULAR: RRR, ABDOMINAL: Non-distended MUSCULOSKELETAl: No obvious deformities NEURO: Alert. Moving 4/4 extremities SKIN:: Warm, dry. Normal color PSYCHIATRIC: Normal affect Course Vital Signs Vital signs: Vital Signs Temperature 97.8 F 04/25/23 20:57 Pulse Rate 93 04/25/23 20:57 Respiratory Rate 16 04/25/23 20:57 Blood Pressure 116/61 04/25/23 20:57 Pulse Oximetry 98 04/25/23 20:57 Oxygen Delivery Room Air 04/25/23 20:57 Temperature 97.8 F 04/25/23 20:57 Pulse Rate 93 04/25/23 20:57 Respiratory Rate 16 04/25/23 20:57 Blood Pressure 116/61 04/25/23 20:57 Pulse Oximetry 98 04/25/23 20:57 Oxygen Delivery Room Air 04/25/23 20:57 Medical Decision Making MDM Narrative Medical decision making narrative: -Presentation: 22-year-old female hit in the nose by her dog concern for nasal bone fracture. 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 Lives with her aunt -External Chart Review: none -[facility]x from [facility]
[2023-04-26] MEDS: ACETAMINOPHEN 500 MG TABLET 1000 MG PO (00:05)
[2023-04-26] MEDS: DEXAMETHASONE 2 MG TABLET 12 MG PO (00:06)
[2023-04-26] MEDS: IBUPROFEN 400 MG TABLET 800 MG PO (00:06)
== END 2023-04-26 00:20 | disposition home or self-care (01) ==
PROVIDERS: Emergency Provider Emergency Medicine; PCP Nurse Practitioner Family
DX: S09.92XA Unspecified injury of nose, initial encounter (principal); J45.909 Unspecified asthma, uncomplicated; W54.1XXA Struck by dog, initial encounter
CPT/HCPCS: 70486; 99284; A9270; J8540

== ENCOUNTER 2023-04-30 00:02 | Day surgery (SDC) | payer BC, OTHER, SELFPAY ==
[2023-04-29 15:53] VITALS: BMI 23.0
--- NOTE | 2023-04-29 15:56 | PC.NURSE ---
Report to the Outpatient Waiting Room, entrance under the green pavilion located off [facility], at time 1215 on date 04/30/23. Planned Procedure Time: 1415. Time changes happen often and if your time is changed the preop area will call you the afternoon before. - You and your visitor will be asked to self-screen and do not enter if you have any COVID symptoms. - A mask is optional within the hospital at this time. Patients may have clear liquids (water, carbonated beverages, clear teas, apple juice) until 3 hours prior to surgery with a maximum of 20 ounces. - No food from midnight until time of surgery Take the following medications with a SIP of water the morning of surgery: CONTROL DO NOT STOP ANY OF YOUR OTHER PRESCRIPTION MEDICATIONS PRIOR TO SURGERY ?EXCEPT THE FOLLOWING Medications to discontinue per physician: N/A Date to take last dose: N/A Please no make-up, nail greek, hairspray, perfume, deodorant, or body powder the day of surgery. No jewelry (including any body piercings) or valuables the day of surgery, leave them at home. Please take a shower or bath the night before, or the morning of, surgery with an antibacterial soap. Wear comfortable, loose fitting clothing. - Jewelry must be removed prior to entering the operating room. Rings and piercings that are not removed may be cut off. - The hospital will not accept responsibility for valuables. - Please leave all valuables, including medications, at home the day of surgery. If you are going home after surgery, a licensed straddle bug driver must drive you home. - NO public transportation without another adult if you receive anesthesia. - We recommend that an adult stay with you for 24 hours following discharge. - We also recommend that you do not drive, make important decision, drink alcoholic beverages, or take any drugs that were not prescribed by your health care provider for at least 24 hours after your discharge time. Follow any additional instructions given to you from your surgeon. If you or anyone in your household have experienced Covid symptoms in the past week, please notify your surgeon or the nurse liaison at the phone number below for possible testing. Telephone instructions given to PT - BENTLEY POWERS and asked if any additional questions and then verbalized understanding. Patient advised to call surgeon office or pre surgery nurse liaison [phone] if any additional questions.
--- NOTE | 2023-04-29 16:57 | PM.IMHP ---
H&P: HPI History of Present Illness Date/Time: 04/29/23 16:57 Chief Complaint: nasal septal fracture nasal bone fracture septal deviation Narrative: planned procedure Review of Systems Review of Systems: All systems reviewed & are unremarkable except as noted in HPI and below [facility] Past Medical History Medical History ADHD Asthma Depression Ear infection Nexplanon removal (~10/01/22) Urinary reflux Surgical History Surgical History History of ear surgery History of placement of ear tubes Hx of shoulder surgery right pectoral transfer, sternal head to scapula - volleyball injury Family History Family History Father Anxiety Depression Mother Anxiety Seizures Depression Grandparent Heart disease Asthma Cancer Depression Mother Depression Father Depression Other Breast cancer Emphysema lung Social History Social History Smoking status: Never smoker Alcohol intake: current Drinks per week: 1 Alcohol use details: social Substance use: never Substance use type: does not use Lack of Transportation: No Lack of Food: Never True Current Housing: I Have Housing Concerned About Future Housing: No Difficulty Paying Gas/Electric Bills: No Difficulty Paying for Meds: No Currently Unemployed: No Education: High School Diploma/GED Difficulty w/ Childcare or Family Care: No Living arrangements: with family Occupation/Education: occupation Gender identity (if verbalized by the patient): Female Sexual Orientation (if Verbalized by the Patient): Straight or Heterosexual Spiritual care concerns: No Agree to blood products: Yes Meds Home Medications and Allergies Home Medications Medication Instructions Recorded Confirmed Type ethynodiol diacetate-ethinyl 1 tablet PO DAILY #84 tabs 02/14/23 04/29/23 Rx estradiol 1 mg-35 mcg tablet (Zovia) Allergies Allergy/AdvReac Type Severity Reaction Status Date / Time hydrocodone Allergy Hives Verified 04/29/23 15:52 brompheniramine AdvReac Hyperactive Verified 04/29/23 15:52 [From Dimetapp (brompheniramine-PPA)] phenylpropanolamine AdvReac Hyperactive Verified 04/29/23 15:52 [From Dimetapp (brompheniramine-PPA)] tramadol AdvReac Other Verified 04/29/23 15:52 Exam Narrative: nasal bone right concavity left convexity left septal deviation Assessment and Plan Assessment and plan (1) Nasal bone fracture: Code(s): S02.2XXA - Fracture of nasal bones, initial encounter for closed fracture Status: Acute Assessment and Plan: up plan or closed reduction nasal bone endoscopic assisted septoplasty hope things to everything of frontal the headlight. We exact same procedure performed 1 or 2 months ago. Risks were discussed including bleeding infection blindness change in vision CF the S CSF leak brain brain damage nasal septal perforation significant risk of cosmetic deformity given the amount times we have trimmed the caudal cartilage. Patient voiced understanding and agreed. (2) Nasal obstruction: Code(s): J34.89 - Other specified disorders of nose and nasal sinuses Status: Acute (3) Nasal congestion: Code(s): R09.81 - Nasal congestion Status: Acute (4) Hypertrophy of both inferior nasal turbinates: Code(s): J34.3 - Hypertrophy of nasal turbinates Status: Acute (5) Nasal septal deviation: Code(s): J34.2 - Deviated nasal septum Status: Acute
[2023-04-30] VITALS (8 sets, daily range): BP systolic 113–127; BP diastolic 77–94; PULSE 55–99; RESP 14–20; TEMP 36.3–36.5; O2SAT 100; BMI 22.0
--- NOTE | 2023-04-30 07:15 | WPDHPUPDATE1 ---
History and Physical Update Update Date/Time: 04/30/23 07:15 History and Physical has been reviewed, including an updated exam of the patient. There are NO changes in the patient's condition. Risks, benefits, and alternatives have been discussed and questions answered. Patient agrees to proceed with procedure.
[2023-04-30] MEDS: LACTATED RINGERS 1,000 ML 30 ML IV CONT (12:45)
[2023-04-30] MEDS: ACETAMINOPHEN 500 MG TABLET 1000 MG PO (12:53)
--- NOTE | 2023-04-30 13:34 | WPDANESEPPF ---
Anes - Initial Pre Proc Eval Procedure: Operation Date: 04/30/23 14:15 Proposed Procedures p Closed Reduction Nasal Fracture - Jacek Rodriguez MD s Septoplasty - Jacek Rodriguez MD Date/Time: 04/30/23 13:34 Surgeon: Jacek Rodriguez MD Pre Op Diagnosis: Nasal Fx, Devated Septum Patient Data Age: 22 Gender: F Height: 1.57 m Weight: 54.7 kg Last Vital Signs Temp 36.5 C 04/30/23 12:12 Pulse 99 04/30/23 12:12 Resp 16 04/30/23 12:12 BP 113/90 04/30/23 12:12 Pulse Ox 100 04/30/23 12:12 O2 Del Method Room Air 04/30/23 12:12 Allergies Allergy/AdvReac Type Severity Reaction Status Date / Time hydrocodone Allergy Hives Verified 04/30/23 12:37 brompheniramine AdvReac Hyperactive Verified 04/30/23 12:37 [From Dimetapp (brompheniramine-PPA)] phenylpropanolamine AdvReac Hyperactive Verified 04/30/23 12:37 [From Dimetapp (brompheniramine-PPA)] tramadol AdvReac Other Verified 04/30/23 12:37 Home Medications Medication Instructions Recorded Confirmed Type ethynodiol diacetate-ethinyl 1 tablet PO DAILY #84 tabs 02/14/23 04/30/23 Rx estradiol 1 mg-35 mcg tablet (Zovia) Patient hx anesthesia problems: none Family hx anesthesia problems: none Results Review: All pre-operative results and documents have been reviewed as part of the pre-operative evaluation. [facility] Past Medical History Medical History ADHD Asthma Depression Ear infection Nexplanon removal (~10/01/22) Urinary reflux Surgical History Surgical History History of ear surgery History of placement of ear tubes Hx of shoulder surgery right pectoral transfer, sternal head to scapula - volleyball injury Family History Family History Father Anxiety Depression Mother Anxiety Seizures Depression Grandparent Heart disease Asthma Cancer Depression Mother Depression Father Depression Other Breast cancer Emphysema lung Social History Social History Smoking status: Never smoker Alcohol intake: current Drinks per week: 1 Alcohol use details: social Substance use: never Substance use type: does not use Lack of Transportation: No Lack of Food: Never True Current Housing: I Have Housing Concerned About Future Housing: No Difficulty Paying Gas/Electric Bills: No Difficulty Paying for Meds: No Currently Unemployed: No Education: High School Diploma/GED Difficulty w/ Childcare or Family Care: No Living arrangements: with family Occupation/Education: occupation Gender identity (if verbalized by the patient): Female Sexual Orientation (if Verbalized by the Patient): Straight or Heterosexual Spiritual care concerns: No Agree to blood products: Yes Anes - Eval Final PreProcedure Day of Procedure 04/30/23 13:34 Patient weight: normal Heart: regular rate and rhythm Lungs: clear to auscultation Airway: Mallampati scale class 1 Neurological: alert and oriented Last oral intake: >/= 8 hours ASA classification: II Emergent: no Anesthetic plan: proceed Anesthesia type and monitoring: general ETT and standard monitoring Results Review: All pre-operative results and documents have been reviewed as part of the pre-operative evaluation. Informed Consent: The patient's anesthetic plan and its attendant risks and benefits were discussed with the patient/family/POA. Questions were solicited and answers provided to the satisfaction of the patient/family/POA.
[2023-04-30] MEDS: ceFAZolin 2 GM/D5W 50 ML 2 GM/50 ML BAG IVPB (14:00)
[2023-04-30] MEDS: LIDO 1%/EPINEPHRINE 1:100,000 50 ML VIAL INFILTRATE (14:16)
[2023-04-30] MEDS: OXYMETAZOLINE HCL 0.05% NAS 15 ML BTL (*BKC) 1 SPRAY NASAL (14:20)
[2023-04-30] MEDS: fentaNYL CITRATE INJ (*CRX) 100 MCG/2 ML VIAL 25 MCG IV PUSH ×2 (15:34→15:35)
--- NOTE | 2023-04-30 15:50 | P.OP_ITS ---
Procedure Note - Detailed Date of Procedure 04/30/23 Pre-op Diagnosis Nasal Fx, Devated Septum Post-op Diagnosis Same Procedure Performed Closed reduction nasal septal fracture septoplasty Surgeon Jacek Rodriguez MD Anesthesia General Indications see above Findings deviated left septum corrected again although the caudal septum is getting very very thin right nasal bone outfractured. Description of Procedure Patient identified consent verified preop. Patient brought operating. Time- out performed. General anesthesia induced endotracheal tube secured. Patient prepped draped position procedure confirmed. Second time-out performed. Right nasal bone was was fractured was able to be outfractured slightly. However I believe a lot of a cosmetic concern was due to a deviated dorsal septum left side was injected [place] incision made small amount of caudal septal cartilage trimmed Johnnie incision closed with 3 interrupted 5 0 fast gut sutures. Gant splints placed sutured anteriorly using a 3-0 mattressed nylon suture. Concern is that the patient may truly need broadcast director operations grafts to keep the caudal septum straight. Blood loss about 5 cc. Patient tolerated the procedure well no complications packing placed splint placed above the nose as well. Estimated Blood Loss 5 Drains No Packing Yes ( Gelfoam) Pathology None sent Complications No immediate complications Condition Stable Disposition PACU [facility] Billing Surgery - Charge Forward: Surgery Billing
[2023-04-30] MEDS: oxyCODONE HCL (*CRX) 5 MG TAB IR PO (16:14)
== END 2023-04-30 17:12 | disposition home or self-care (01) ==
PROVIDERS: PCP Nurse Practitioner Family; Visit Provider Otolaryngology
PROC: 0NSBXZZ Reposition Nasal Bone, External Approach (ICD-10-PCS; CPT 21315; principal; 2023-04-30 14:15)
PROC: (CPT 30520; 2023-04-30 14:15)
DX: S02.2XXA Fracture of nasal bones, initial encounter for closed fracture (principal); J34.2 Deviated nasal septum; R09.81 Nasal congestion; J34.89 Other specified disorders of nose and nasal sinuses; W54.1XXA Struck by dog, initial encounter
CPT/HCPCS: 21320; 30520; A9270; J0330; J0690; J1100; J2250; J2405; J2704; J3010; J7120

== ENCOUNTER 2023-07-02 17:09 | Outpatient (CLI) | payer BC, OTHER, SELFPAY ==
--- NOTE | ~2023-07-02 | XR_ITS ---
XR chest 2V DATE: 07/02/2023 17:32 INDICATION: Shortness of breath for one week TECHNIQUE: PA and lateral views COMPARISON: 07/02/2023 PA and lateral chest FINDINGS: Normal heart size. No hilar or mediastinal enlargement. No pulmonary infiltrate or consolid ation, pleural effusion or pulmonary vascular congestion or pneumothorax is detected. IMPRESSION: Negative Reviewed, dictated and finalized at location L. IMPRESSION: Negative
== END 2023-07-02 17:10 | disposition home or self-care (01) ==
PROVIDERS: PCP Nurse Practitioner Family; Visit Provider Family Medicine
DX: R06.02 Shortness of breath (principal)
CPT/HCPCS: 71046

== ENCOUNTER 2023-07-16 15:11 | Emergency (ER) | payer BC, OTHER, SELFPAY ==
[2023-07-16 15:42] VITALS: BP 132/77; PULSE 74; RESP 16; TEMP 36.8; O2SAT 100
--- NOTE | 2023-07-16 18:23 | ED.GENADULT ---
HPI - General Adult General Chief complaint: Extremity Injury, Upper Stated complaint: possible finger infection Time Seen by Provider: 07/16/23 18:08 History of Present Illness HPI narrative: 23-year-old female present emergency department for evaluation of an infection of her left index finger. Patient reports Saturday she was injured by a mechanical bull resulting in an abrasion to the finger. Patient did develop some redness and swelling at the PIP joint. Patient reports that she did have redness that tracks from her index finger of her forearm. Patient initially presented to the prompt care and was referred to the emergency department. Upon evaluation in the emergency department patient's erythema has improved and patient has no tracking of her left arm. Patient does have some erythema at the PIP joint of the left index finger. Patient has normal range of motion of the left index finger. Related Data Allergies Allergy/AdvReac Type Severity Reaction Status Date / Time hydrocodone Allergy Hives Verified 07/16/23 17:43 brompheniramine AdvReac Hyperactive Verified 07/16/23 17:43 [From Dimetapp (brompheniramine-PPA)] phenylpropanolamine AdvReac Hyperactive Verified 07/16/23 17:43 [From Dimetapp (brompheniramine-PPA)] tramadol AdvReac Other Verified 07/16/23 17:43 Review of Systems Review of Systems: All systems reviewed & are unremarkable except as noted in HPI and below PMFSH Past Medical History Medical History (Updated 07/17/23 @ 00:01 by Tamika Dabradley) ADHD Allergies Asthma Contraception management Depression Dizziness Ear infection Enlarged tonsils Hypertrophy of both inferior nasal turbinates Nasal bone fracture Nasal bone fracture Nasal congestion Nasal crusting Nasal crusting Nasal obstruction Nasal septal deviation Nasal septal deviation Nasal trauma Nexplanon removal (~10/01/22) Palpitations Post covid-19 condition, unspecified Post-operative pain Post-operative pain Post-operative pain Post-operative pain Shoulder pain, right Syncope and collapse Tonsillar hypertrophy Urinary reflux Surgical History Surgical History History of ear surgery History of placement of ear tubes Hx of shoulder surgery right pectoral transfer, sternal head to scapula - volleyball injury Family History Family History Father Anxiety Depression Mother Anxiety Seizures Depression Grandparent Heart disease Asthma Cancer Depression Mother Depression Father Depression Other Breast cancer Emphysema lung Social History Social History Social History: Caffeine- occasionally Smoking status: Light tobacco smoker Tobacco type: e-cigarettes/vaping Alcohol intake: current Drinks per week: 1 Alcohol use details: social Substance use: never Substance use type: does not use Lack of Transportation: No Lack of Food: Never True Current Housing: I Have Housing Concerned About Future Housing: No Difficulty Paying Gas/Electric Bills: No Difficulty Paying for Meds: No Currently Unemployed: No Education: High School Diploma/GED Difficulty w/ Childcare or Family Care: No Living arrangements: with family Occupation/Education: occupation Gender identity (if verbalized by the patient): Female Sexual Orientation (if Verbalized by the Patient): Straight or Heterosexual Spiritual care concerns: No Agree to blood products: Yes Exam Narrative: APPEARANCE: Well appearing, no pain, no distress, well-nourished. HEAD: normocephalic, atraumatic. EYES: PERRLA/EOMI, conjunctivae clear. NOSE: Normal no drainage RESPIRATORY: Airway patent, respirations nonlabored. Clear to auscultation bilaterally, no rales, rhonchi, wheezing. CARDIOVASCULAR: Regular rate and rhythm without murmurs rubs
[2023-07-16] MEDS: ceFAZolin 1 GM/NS 50 ML 1 GM/50 ML BAG IVPB (18:39)
[2023-07-16 19:09] VITALS: BP 130/70; PULSE 71; RESP 20; O2SAT 100
== END 2023-07-16 19:10 | disposition home or self-care (01) ==
PROVIDERS: Emergency Provider Emergency Medicine; PCP Family Medicine
DX: L03.012 Cellulitis of left finger (principal); J45.909 Unspecified asthma, uncomplicated; F17.290 Nicotine dependence, other tobacco product, uncomplicated
CPT/HCPCS: 96365; 99284; J0690

== ENCOUNTER 2023-07-17 12:10 | Outpatient (CLI) | payer BC, OTHER, SELFPAY ==
--- NOTE | ~2023-07-17 | XR_ITS ---
EXAMINATION: XR hand LT min 3V DATE: 07/17/2023 12:28 INDICATION: Left hand pain. Injury. TECHNIQUE: 3 views of left hand were obtained. COMPARISON: None. FINDINGS: Bone alignment is normal. No fracture. There is mild osteoarthritis of first interphalangea l joint. IMPRESSION: 1. No fracture. Reviewed, dictated and finalized at location A. IMPRESSION: 1. No fracture.
[2023-07-17 14:14] LABS: Basophils Percent Auto 0.7 % (0.2-1.2); Eosinophils Absolute Auto 0.1 K/mm3 (0-0.3); Eosinophils Percent Auto 1.7 % (0-4.4); Hematocrit 38.8 % (37.0-47.0); Hemoglobin 13.2 g/dL (12.0-15.0); Immature Granulocyte Absolute 0.01 K/mm3 (0.00-0.031); Immature Granulocyte Percent A 0.2 % (0-0.5); Lymphocytes Absolute Auto 1.44 K/mm3 (0.9-3.2); Lymphocytes Percent Auto 24.5 % (18.3-44.2); Mean Corpuscular Hemoglobin 31.4 pg (26-34); Mean Corpuscular Volume 92.2 fl (80-100); Mean Platelet Volume 10.7 fl (7.4-10.4); Monocytes Absolute Auto 0.5 K/mm3 (0.1-0.6); Neutrophils Absolute Auto 3.8 K/mm3 (1.3-6.7); Neutrophils Percent Auto 64.9 % (45.5-73.1); Platelet Count Result 319 k/mm3 (150-375); Red Blood Count 4.21 M/mm3 (4.2-5.4); White Blood Count 5.9 K/mm3 (4.5-10.0)
== END 2023-07-17 12:11 | disposition home or self-care (01) ==
PROVIDERS: PCP Family Medicine; Visit Provider Nurse Practitioner Family
DX: S69.92XA Unspecified injury of left wrist, hand and finger(s), initial encounter (principal); I10 Essential (primary) hypertension
CPT/HCPCS: 36415; 73130; 85025

== ENCOUNTER 2023-10-10 14:13 | Outpatient (CLI) | payer BC, OTHER, SELFPAY ==
[2023-10-10 14:33] LABS: Basophils Percent Auto 0.8 % (0.2-1.2); Eosinophils Absolute Auto 0.1 K/mm3 (0-0.3); Eosinophils Percent Auto 2.6 % (0-4.4); Hematocrit 38.7 % (37.0-47.0); Hemoglobin 13.2 g/dL (12.0-15.0); Immature Granulocyte Absolute 0.01 K/mm3 (0.00-0.031); Immature Granulocyte Percent A 0.2 % (0-0.5); Lymphocytes Absolute Auto 1.87 K/mm3 (0.9-3.2); Lymphocytes Percent Auto 35.3 % (18.3-44.2); Mean Corpuscular HGB Conc 34.1 g/dl (32-36); Mean Corpuscular Hemoglobin 30.6 pg (26-34); Mean Corpuscular Volume 89.8 fl (80-100); Monocytes Absolute Auto 0.4 K/mm3 (0.1-0.6); Monocytes Percent Auto 6.6 % (2.6-8.5); Neutrophils Absolute Auto 2.9 K/mm3 (1.3-6.7); Neutrophils Percent Auto 54.5 % (45.5-73.1); Platelet Count Result 313 k/mm3 (150-375); Red Blood Count 4.31 M/mm3 (4.2-5.4); Red Cell Distribution Width 11.9 % (11.5-14.5); White Blood Count 5.3 K/mm3 (4.5-10.0)
[2023-10-10 15:07] LABS: Alanine Aminotransferase 19 U/L (6-35); Albumin Level 4.4 g/dL (3.5-5.1); Alkaline Phosphatase 67 U/L (38-126); Anion Gap 8 mmol/L (8-16); Aspartate Amino Transferase 33 U/L (14-36); Bilirubin,Total 0.6 mg/dL (0.2-1.3); Blood Urea Nitrogen 14 mg/dL (7-17); Calcium 9.4 mg/dL (8.4-10.2); Carbon Dioxide 27 mmol/L (22-30); Chloride 103 mmol/L (98-107); Estimated Glomerular Filt Rate > 60; Glucose 100 mg/dL (65-110); Potassium 3.8 mmol/L (3.4-5.0); Sodium 138 mmol/L (137-145)
[2023-10-10 15:08] LABS: Erythrocyte Sedimentation Rate 12 mm/hr (0-20)
[2023-10-10 15:35] LABS: Thyroid Stimulating Hormone 0.684 uIU/mL (0.465-4.680)
[2023-10-10 16:19] LABS: Vitamin D 25 Hydroxy 32.8 ng/mL
[2023-10-15 14:30] LABS: Anti Nuclear Antibody Pattern Nuclear, Speckled
== END 2023-10-10 14:14 | disposition home or self-care (01) ==
LOC: ANHLAB 14:15
PROVIDERS: PCP Family Medicine; Visit Provider Nurse Practitioner Family
DX: L65.9 Nonscarring hair loss, unspecified (principal); U09.9 Post COVID-19 condition, unspecified; N92.0 Excessive and frequent menstruation with regular cycle; I10 Essential (primary) hypertension; Z13.29 Encounter for screening for other suspected endocrine disorder; E53.8 Deficiency of other specified B group vitamins; E55.9 Vitamin D deficiency, unspecified
CPT/HCPCS: 36415; 80053; 82306; 82607; 84443; 85025; 85652; 86038; 86039

== ENCOUNTER 2023-11-01 14:37 | Outpatient (CLI) | payer BC, OTHER, SELFPAY ==
[2023-11-01 15:23] LABS: Alanine Aminotransferase 14 U/L (6-35); Albumin Level 4.6 g/dL (3.5-5.1); Alkaline Phosphatase 81 U/L (38-126); Anion Gap 11 mmol/L (8-16); Aspartate Amino Transferase 19 U/L (14-36); Bilirubin,Total 0.5 mg/dL (0.2-1.3); Blood Urea Nitrogen 12 mg/dL (7-17); Calcium 9.6 mg/dL (8.4-10.2); Carbon Dioxide 22 mmol/L (22-30); Chloride 105 mmol/L (98-107); Estimated Glomerular Filt Rate > 60; Glucose 106 mg/dL (65-110); Potassium 3.8 mmol/L (3.4-5.0); Sodium 138 mmol/L (137-145)
== END 2023-11-01 14:38 | disposition home or self-care (01) ==
PROVIDERS: PCP Family Medicine
DX: L64.8 Other androgenic alopecia (principal)
CPT/HCPCS: 36415; 80053

== ENCOUNTER 2023-11-11 08:22 | Emergency (ER) | payer OTHER, SELFPAY ==
[2023-11-11 08:29] VITALS: BP 122/76; PULSE 74; RESP 20; TEMP 36.8; O2SAT 100
--- NOTE | 2023-11-11 08:44 | ED.URI ---
HPI - URI/Sore Throat General Chief Complaint: Upper Respiratory Infection Stated Complaint: upper respiratory Time Seen by Provider: 11/11/23 08:44 Source: patient and RN notes reviewed Mode of arrival: ambulatory Limitations: no limitations History of Present Illness HPI Narrative: 23 y/o female presented for c/o right ear pain, sore throat, cough and nasal congestion. Onset 3 days. Reports the ear caused some dizziness yesterday, and feels pressure. Taking multiple otc meds without much improvement. Denies sob, wheezing, n/v/d/f/c. MD elicited complaint: cough Related Data Home Medications Medication Instructions Recorded Confirmed spironolactone 100 mg tablet mg 11/11/23 Allergies Allergy/AdvReac Type Severity Reaction Status Date / Time hydrocodone Allergy Hives Verified 09/11/23 16:00 brompheniramine AdvReac Hyperactive Verified 09/11/23 16:00 [From Dimetapp (brompheniramine-PPA)] phenylpropanolamine AdvReac Hyperactive Verified 09/11/23 16:00 [From Dimetapp (brompheniramine-PPA)] tramadol AdvReac Other Verified 09/11/23 16:00 Review of Systems Review of Systems: CONSTITUTIONAL: Denies malaise, chills, sweats, fever EYES: Denies visual changes, redness, or discharge ENT: Reports rhinorrhea, congestion, otalgia, sore throat CARDIOVASCULAR: Denies chest pain, palpitations, edema RESPIRATORY: Reports cough, post nasal drainage. Denies dyspnea GASTROINTESTINAL: Denies abdominal pain, nausea, vomiting, diarrhea SKIN: Denies rash or itching MUSCULOSKELETAL: Denies myalgia NEUROLOGIC: Reports headache PMFSH Past Medical History Medical History (Updated 11/11/23 @ 09:07 by Cammie Pool, ARTIFICIAL STONE SETTER) ADHD Allergies Alopecia Asthma Contraception management Depression Dizziness Ear infection Enlarged tonsils Hypertrophy of both inferior nasal turbinates Nasal bone fracture Nasal bone fracture Nasal congestion Nasal crusting Nasal crusting Nasal obstruction Nasal septal deviation Nasal septal deviation Nasal trauma Nexplanon removal (~10/01/22) Palpitations Positive DENIS (antinuclear antibody) Post covid-19 condition, unspecified Post-operative pain Post-operative pain Post-operative pain Post-operative pain Shoulder pain, right Syncope and collapse Tonsillar hypertrophy Urinary reflux Surgical History Surgical History (Updated 11/11/23 @ 09:07 by Cammie Pool APRN) History of ear surgery History of placement of ear tubes History of tonsillectomy Hx of shoulder surgery right pectoral transfer, sternal head to scapula - volleyball injury Family History Family History Father Anxiety Depression Mother Anxiety Seizures Depression Grandparent Heart disease Asthma Cancer Depression Mother Depression Father Depression Other Breast cancer Emphysema lung Social History Social History Social History: Caffeine- occasionally Smoking status: Never smoker Tobacco type: e-cigarettes/vaping Alcohol intake: current Drinks per week: 1 Alcohol use details: social Substance use: never Substance use type: does not use Lack of Transportation: No Lack of Food: Never True Current Housing: I Have Housing Concerned About Future Housing: No Difficulty Paying Gas/Electric Bills: No Difficulty Paying for Meds: No Currently Unemployed: No Education: High School Diploma/GED Difficulty w/ Childcare or Family Care: No Living arrangements: with family Occupation/Education: occupation Gender identity (if verbalized by the patient): Female Sexual Orientation (if Verbalized by the Patient): Straight or Heterosexual Spiritual care concerns: No Agree to blood products: Yes Exam Narrative: GENERAL: well-appearing, nontoxic no acute distress. HEAD: Normocephalic EYES: PERRLA, conjunctivae clear ENT: Muc
== END 2023-11-11 09:09 | disposition home or self-care (01) ==
PROVIDERS: Emergency Provider Nurse Practitioner Family; PCP Nurse Practitioner Family
DX: J06.9 Acute upper respiratory infection, unspecified (principal); F17.290 Nicotine dependence, other tobacco product, uncomplicated; J45.909 Unspecified asthma, uncomplicated; F90.9 Attention-deficit hyperactivity disorder, unspecified type
CPT/HCPCS: 87081; 87880; 99213; G0463

== ENCOUNTER 2024-03-26 14:56 | Outpatient (CLI) | payer OTHER, SELFPAY ==
--- NOTE | ~2024-03-26 | US_ITS ---
EXAMINATION: US pelvic complete w TV DATE: 03/26/2024 16:15 INDICATION: Pelvic and perineal pain. TECHNIQUE: Multiple transabdominal and transvaginal sonographic images of the pelvis were obtained. COMPARISON: Ultrasound 10/10/2022 FINDINGS: TRANSABDOMINAL ULTRASOUND: The uterus measures 7.5 x 3.2 x 5.2 cm. There is no free fluid in the pelvis. TRANSVAGINAL ULTRASOUND: The endometrial complex measures 4 mm in thickness. The right ovary measures 3.3 x 1.6 x 2.8 cm. Ther e is a 3.0 x 1.4 x 2.6 cm cyst with thin septation in right adnexa. The left ovary measures 3.8 x 1.9 x 2.2 cm. There is normal vascular flow in the ovaries. IMPRESSION: 1. 3.0 cm cyst with thin septation in right adnexa, likely benign. Reviewed, dictated and finalized at location A.
== END 2024-03-26 14:57 | disposition home or self-care (01) ==
LOC: ANHIMG 14:56
PROVIDERS: PCP Nurse Practitioner Family; Visit Provider Nurse Practitioner Obstetrics & Gynecology
DX: N83.291 Other ovarian cyst, right side (principal)
CPT/HCPCS: 76830; 76856

== ENCOUNTER 2024-04-01 10:35 | Emergency (ER) | payer OTHER, SELFPAY ==
--- NOTE | ~2024-04-01 | US_ITS ---
EXAMINATION: US pelvic complete DATE: 04/01/2024 11:27 INDICATION: Right lower quadrant pain Comparison:Ultrasound dated 03/26/2024 TECHNIQUE: Multiple transabdominal and endovaginal sonographic images of the pelvis performed. FINDINGS: The uterus measures 6.6 x 3.9 x 5.7 cm. The endometrial complex measures 6 mm. The right ovary measures 3.3 x 2.4 x 2.5 cm and the left ovary measures 2.6 x 2 x 1.3 cm. There is a right ovarian cyst measuring 1.8 cm. There are small follicles in each ovary. Normal doppler signal i n both ovaries. There is no free fluid in the pelvis. There are no abnormal masses seen on either side. IMPRESSION: 1. Right ovarian cyst measuring 1.8 cm. No evidence for ovarian torsion. Reviewed, dictated and finalized at location B.
--- NOTE | ~2024-04-01 | CT_ITS ---
EXAMINATION: CT abdomen pelvis w con DATE: 04/01/2024 12:26 INDICATION: Right lower quadrant abdominal pain. Nausea. TECHNIQUE: Computed tomography (CT) of the abdomen and pelvis was performed with 100 mL Omnipaque 350 intravenous contrast. Automated exposure control and iterative reconstruction technique were employe d. The dose-length product was 311.72 mGy-cm. COMPARISON: None. FINDINGS: The visualized portions of the lung bases are clear without pneumonia or pleural effusion. The heart size is normal. No pericardial effusion. The liver, gallbladder, pancreas, adrenal glands, and kidneys are normal. Calcifications in the spleen are consistent with old granulomatous disease. T here are no dilated loops of bowel. The appendix is normal. There are no pathologically enlarged lymp h nodes. There is no free intraperitoneal fluid. The bones are unremarkable. IMPRESSION: 1. No etiology for the patient's symptoms. Reviewed, dictated and finalized at location A.
[2024-04-01 10:38] VITALS: BP 131/86; PULSE 91; RESP 16; TEMP 36.4; O2SAT 100
--- NOTE | 2024-04-01 10:43 | ED.ABDPAIN ---
HPI - Abdominal Pain General Chief Complaint: Abdominal Pain Stated Complaint: right LQ pain Time Seen by Provider: 04/01/24 10:39 Source: patient Mode of arrival: ambulatory Limitations: no limitations History of Present Illness HPI narrative: 23 yo female presents with acute onset RLQ pain associated with nausea but no vomiting. She does not have an appetite. Patient works at [employer]. 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 ANNIE 7am. Not on anticoagulation. LBM was okay although she has been constipated, having to strain and having infrequent stools. No diarrhea or blood. No vaginal bleeding or discharge. LMP 03/25 and it was a normal menstrual cycle. No history of STIs. No fevers/chills. This has never happened before. She took Tylenol approximately 30 minutes prior to arrival. No history of abdominal surgery. Diagnosed with a UTI yesterday and prescribed antibiotics but not yet picked up/taken. Curling up into a ball helps symptoms. Pain described as sharp stabbing pulsating. 6/10 in severity. Radiating from RLQ across low abdomen. Sexually active with 1 male partner in the past 2 months. Uses condoms. Related Data Allergies Allergy/AdvReac Type Severity Reaction Status Date / Time hydrocodone Allergy Hives Verified 03/31/24 14:23 brompheniramine AdvReac Hyperactive Verified 03/31/24 14:23 [From Dimetapp (brompheniramine-PPA)] phenylpropanolamine AdvReac Hyperactive Verified 03/31/24 14:23 [From Dimetapp (brompheniramine-PPA)] tramadol AdvReac Other Verified 03/31/24 14:23 [facility] Past Medical History Medical History (Updated 04/01/24 @ 22:15 by Aubree Andres MD) ADHD Allergies Alopecia Asthma Contraception management Depression Dizziness Ear infection Enlarged tonsils Hypertrophy of both inferior nasal turbinates Nasal bone fracture Nasal congestion Nasal crusting Nasal obstruction Nasal septal deviation Nasal trauma Nexplanon removal (~10/01/22) Palpitations Positive DENIS (antinuclear antibody) Post covid-19 condition, unspecified Post-operative pain Shoulder pain, right Syncope and collapse Tonsillar hypertrophy Urinary reflux Surgical History Surgical History History of ear surgery History of placement of ear tubes History of tonsillectomy Hx of shoulder surgery right pectoral transfer, sternal head to scapula - volleyball injury Family History Family History Father Anxiety Depression Mother Anxiety Seizures Depression Grandparent Heart disease Asthma Cancer Depression Mother Depression Father Depression Other Breast cancer Emphysema lung Social History Social History (Updated 04/01/24 @ 22:15 by Aubree Andres MD) Social History: Caffeine- occasionally Smoking status: Never smoker Tobacco type: e-cigarettes/vaping Alcohol intake: current Drinks per week: 1 Alcohol use details: social Substance use: never Substance use type: does not use Lack of Transportation: No Lack of Food: Never True Current Housing: I Have Housing Concerned About Future Housing: No Difficulty Paying Gas/Electric Bills: No Difficulty Paying for Meds: No Currently Unemployed: No Education: High School Diploma/GED Difficulty w/ Childcare or Family Care: No Living arrangements: with family Occupation/Education: occupation Additional occupation/education comments: [employer] Gender identity (if verbalized by the patient): Female Sexual Orientation (if Verbalized by the Patient): Straight or Heterosexual Spiritual care concerns: No Agree to blood products: Yes Exam Narrative: GENERAL: Well-appearing, well-nourished, and in no acute distress. HEAD: Normocephalic, atraumatic. EYES: Non injected, non icteric ENT: Nares clear, no rhinorrhea or epistaxis. NECK: Supple. ANT
[2024-04-01] MEDS: ACETAMINOPHEN 500 MG TABLET 1000 MG PO (10:59)
[2024-04-01 11:06] VITALS: BP 108/83; PULSE 86; RESP 12; O2SAT 97
[2024-04-01] MEDS: ONDANSETRON INJ 4 MG/2 ML VIAL IV PUSH (11:06)
--- NOTE | 2024-04-01 11:12 | PC.NURSE ---
pt to u/s via w/c at this time
[2024-04-01 11:16] LABS: Basophils Absolute Auto 0.1 K/mm3 (0.0-0.1); Basophils Percent Auto 0.6 % (0.2-1.2); Eosinophils Absolute Auto 0.1 K/mm3 (0-0.3); Eosinophils Percent Auto 0.7 % (0-4.4); Hematocrit 41.9 % (37.0-47.0); Hemoglobin 14.4 g/dL (12.0-15.0); Immature Granulocyte Absolute 0.04 K/mm3 (0.00-0.031); Immature Granulocyte Percent A 0.4 % (0-0.5); Lymphocytes Absolute Auto 1.53 K/mm3 (0.9-3.2); Lymphocytes Percent Auto 16.3 % (18.3-44.2); Mean Corpuscular HGB Conc 34.4 g/dl (32-36); Mean Corpuscular Hemoglobin 31.3 pg (26-34); Mean Corpuscular Volume 91.1 fl (80-100); Mean Platelet Volume 10.1 fl (7.4-10.4); Monocytes Absolute Auto 0.6 K/mm3 (0.1-0.6); Monocytes Percent Auto 6.5 % (2.6-8.5); Neutrophils Absolute Auto 7.1 K/mm3 (1.3-6.7); Neutrophils Percent Auto 75.5 % (45.5-73.1); Platelet Count Result 369 k/mm3 (150-375); Red Cell Distribution Width 12.5 % (11.5-14.5); White Blood Count 9.4 K/mm3 (4.5-10.0)
[2024-04-01 11:18] LABS: Alanine Aminotransferase 15 U/L (6-35); Albumin Level 4.7 g/dL (3.5-5.1); Alkaline Phosphatase 83 U/L (38-126); Anion Gap 6 mmol/L (4-12); Aspartate Amino Transferase 23 U/L (14-36); Bilirubin,Total 0.8 mg/dL (0.2-1.3); Blood Urea Nitrogen 13 mg/dL (7-17); Calcium 9.6 mg/dL (8.4-10.2); Carbon Dioxide 27 mmol/L (22-30); Chloride 106 mmol/L (98-107); Estimated CRCL calculation 99 ml/min; Estimated Glomerular Filt Rate > 60; Glucose 99 mg/dL (65-110); Potassium 3.9 mmol/L (3.4-5.0); Sodium 139 mmol/L (137-145)
[2024-04-01 11:29] LABS: Prothrombin Time 13.9 Seconds (11.1-14.7)
[2024-04-01 11:35] LABS: Beta HCG Quantitative < 2.39 mIU/ML
[2024-04-01 13:07] LABS: Appearance Urine Cloudy (Clear); Bacteria Urine 1+ /hpf; Bilirubin Urine Negative (Negative); Blood Urine Negative (Negative); Color Urine Yellow (Yellow); Glucose Urine UA Negative (Negative); Ketones Urine Trace mg/dL (Negative); Leukocyte Esterase Ur Negative LEU/UL (Negative); Nitrate Urine Negative (Negative); Non Pathogenic Casts 0-2; Protein Urine Negative (Negative); RBC Urine 0-2 /hpf (0-2); Specific Grav Ur 1.025 (1.001-1.035); Squamous Epithelial Cell Urine Many /hpf (Few); pH Urine 7.5 (5.0-9.0)
[2024-04-01 13:09] LABS: Add Urine Microscopic? YES
[2024-04-01] MEDS: KETOROLAC 15 MG/ML VIAL (*BKC) IV PUSH (13:35)
[2024-04-01 13:36] VITALS: BP 108/50; PULSE 80; RESP 18; O2SAT 100
== END 2024-04-01 13:40 | disposition home or self-care (01) ==
PROVIDERS: Emergency Provider Student in an Organized Health Care Education/Training Program; PCP Nurse Practitioner Family
DX: N83.201 Unspecified ovarian cyst, right side (principal); N39.0 Urinary tract infection, site not specified; J45.909 Unspecified asthma, uncomplicated; Z79.3 Long term (current) use of hormonal contraceptives; Z86.16 Personal history of COVID-19
CPT/HCPCS: 36415; 74177; 76856; 80053; 81001; 84702; 85025; 85610; 87077; 87086; 87088; 87186; 96374; 96375; 99284; A9270; J1885; J2405; Q9967

== ENCOUNTER 2025-08-02 11:50 | Emergency (ER) | payer BC, SELFPAY ==
--- OUTSIDE RECORDS SUMMARY | 2025-08-02 12:07 | XMS_ITS | Clinical Summary ---
Author Organization [facility] [employer] Address [address] [facility] [address] [place] [address] Care Team Providers Care Miner Pick Name Role Phone Berenice Baez ANUSHA-CUSTOMS AND IMMIGRATION OFFICER Primary Care Provider Source Comments [facility],non-owned Affiliates and Associated Physician Practices is amultiple site organization consisting of ambulatory clinics and hospital sitesin [place], [place], [place] and [place]. This disclosure is being madepursuant to the Care Everywhere program and may not contain all information available regarding this patient. Last updated 18.[facility] [employer] Allergies Active Allergy Reactions Criticality Noted Date Comments Advil Cold-Sinus Vomiting Low 01/24/2023 Uzqksnxi-Nfnumrjtm-Qrebdeip h Unknown 05/28/2023 Throw up and a lot of energy Hydrocodone Urticaria Medium 05/28/2023 Tramadol Other 05/28/2023 Sick and nightmares Medications * Be aware that medications may not be up to date on this document. Alwaysverify current medications with the patient. azelastine (Astelin) 0.1 % nasal spray [place] 1 (one) spray into each nostril 2 times daily 90 mL 4 05/28/2023 Active ethyndiol diacetate-ethin yl estradiol (Demulen ; Kelnor ; Zovia ) 1-35 MG-MCG tablet Take 1 (one) tablet by mouth once daily 06/17/2023 Active Immunizations Immunization Administration Dates Next Due HEP B VACCINE, ADULT 3 DOSE 05/21/2023, iNFLUENZA VACCINE, RECOM-LAKE, QUADR. (FLUBLOCK QUADRIVALENT; 18Y+) (RIV4) 08/07/2022 Social History Tobacco Use Types Packs/Day Years Used Date Smoking Tobacco: Never Smokeless Tobacco: Never Alcohol Use Standard Drinks/Week Comments Yes 0 (1 standard drink = 0.6 oz pur e alcohol) occ Comments Unknown Sex and Gender Information Value Date Recorded Sex Assigned at Not on file Legal Sex Female 1:01 PM CDT Gender Identity Not on file Sexual Orientation Not on file Last Filed Vital Signs Vital Sign Reading Time Taken Comments Blood Pressure 112/76 05/28/2023 9:56 AM CDT Pulse 65 05/28/2023 9:56 AM CDT Temperature - - Respiratory Rate - - Oxygen Saturation - - Inhaled Oxygen Concentration - - Weight 56 kg (123 lb 6.4 oz) 05/28/2023 9:56 AM CDT Height 157.5 cm (5' 2) 05/28/2023 9:56 AM CDT Body Mass Index 22.57 05/28/2023 9:56 AM CDT Plan of Treatment Health Maintenance Due Date Last Done Comments HIV SCREENING 2016 HPV VACCINE (1 - 3-dose series) 2016 CHLAMYDIA/GONORRHEA SCREENING 2017 HEPATITIS C SCREENING 07/03/2019 DTAP/TDAP/TD VACCINES (1 - Tdap) 2020 PAP SMEAR 2022 HEPATITIS B VACCINE (3 of 3 - 19+ 3-dose series) 09/26/2023 05/21/2023, 03/26/2023 DEPRESSION SCREENING 11/04/2024 COVID-19 VACCINE (1 - 2023-2 5 season) 2025 INFLUENZA VACCINE (#1) 2025 08/07/2022 ZOSTER VACCINE (1 of 2) 2051 HIB VACCINE Aged Out No longer eligi ble based on patient's age to complete this topic MENINGOCOCCAL (Group B) VACCINE SHARED DECISION-MAKING Aged Out No longer eligible based on patient's age to complete this topic MENINGOCOCCAL GROUPS A/C/Y/W VACCINE Aged Out No longer eligible b ased on patient's age to complete this topic PNEUMOCOCCAL VACCINE Aged Out No long er eligible based on patient's age to complete this topic Insurance [place] [address] [place] [address] [facility] Address[facility] [address] [place] [address] [place] [address] ANTHEM Care Teams Miner Pick Relationship Specialty Start Date End Date Berenice Baez APRN-CUSTOMS AND IMMIGRATION OFFICER [address] [place] [address] PCP - General 03/05/23
--- OUTSIDE RECORDS SUMMARY | 2025-08-02 12:07 | XMS_ITS | Clinical Summary ---
Author Organization [address] Address [address] [place] [address] Care Team Providers Care Supervisor Fabrication Department Name Role Phone No, Physician Unavailable Ana Dudley NP Primary Care Provider + Nicolas Arreguin MD Unavailable [phone] Allergies Active Allergy Reactions Criticality Noted Date Comments Adhesive Redness Low 11/29/2023 Clear medical tape Dimetapp Cold And Flu Vomiting Low 07/02/2019 Dimetapp Sinus Vomiting Low 01/24/2023 Hydrocodone Hives Medium 01/24/2023 Pains gets worse and gets hives. Pseudoephedrine Vomiting Medium 11/17/2019 Tramadol Hallucinations Medium 12/18/2023 Medications spironolactone (ALDACTONE) 100 mg tablet Take 1 tablet (100 mg total) by mouth wastewater analyst before breakfast Active hydroxychloroqu ine (PLAQUENIL) 200 mg tablet Take 2 tablets (400 mg total) by mouth wastewater analyst before breakfast Active ethynodiol diac-eth estradioL (KELNOR,ZOVIA) 1-35 mg-mcg per tablet Take 1 tablet by mouth wastewater analyst before breakfast 3 Active oxyCODONE (ROXICODONE) 5 mg immediate release tabletIndicatio ns:Pain Take 1 tablet (5 mg total) by mouth every 4 (four) hours as needed for pain 15 tablet 4 Active Additional Information Patient not taking.Reported on 01/20/2024 Active Problems Problem Noted Date Diagnosed Date 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 Deviated septum 09/16/2023 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 Right shoulder strain, initial encounter 020 Surgical History Surgery Date Site/Laterality Comments SHOULDER SURGERY 11/04/2016 - 11/03/2017 Right OTHER SURGICAL HISTORY 11/04/2018 - 11/03/2019 Pectoralis Trasnfer SINUS SURGERY 02/2023, 03/2023, 04/2023 TONSILLECTOMY 11/04/2022 - 11/03/2023 Medical History Medical History Date Comments ADHD (attention deficit hyperactivity disorder) Depression Asthma Nosebleed Postoperative delirium pt report s angry on emergence Family History Medical History Relation Name Comments Allergies Mother Leah Seizures Mother Leah Anesthesia problems Neg Hx Relation Name Status Comments Mother Leah Social History Tobacco Use Types Packs/Day Years Used Date Smoking Tobacco: Never Passive Smoke Exposure: Never Smokeless Tobacco: Never Tobacco Cessation:Counseling Given: Not Answered Alcohol Use Standard Drinks/Week Comments Never 0 (1 standard drink = 0.6 oz pur e alcohol) AUDIT-C Answer Date Recorded Q1: How often do you have a drink containing alc ohol? Monthly or less 12/18/2023 Q2: How many drinks containi ng alcohol do you have on a typical day when you are drinking? 1 or 2 12/18/2023 Q3: How often do you have si x or more drinks on one occasion? Never 12/18/2023 Personal Safety Answer Date Recorded Have you ever been in or are you currently in a harmful physical or emotional relationship or is someone making you feel afraid or unsafe? Denies 12/18/2023 Comments No Sex and Gender Information Value Date Recorded Sex Assigned at Not on file Legal Sex Female 9:13 PM CDT Gender Identity Not on file Sexual Orientation Not on file Obstetrics History Last Filed Vital Signs Vital Sign Reading Time Taken Comments Blood Pressure 103/61 12/18/2023 5:00 PM POULTRY VETERINARIAN Pulse 85 12/18/2023 5:00 PM POULTRY VETERINARIAN Temperature 36.8 C (98.2 F) 12/18/2023 3:30 PM POULTRY VETERINARIAN Respiratory Rate 10 12/18/2023 5:00 PM POULTRY VETERINARIAN Oxygen Saturation 97% 12/18/2023 5:00 PM POULTRY VETERINARIAN Inhaled Oxygen Concentration - - Weight 63 kg (138 lb 12.8 oz) 05/11/2024 11:56 A M CDT Height 157.5 cm (5' 2) 05/11/2024 11:56 AM CDT Body Mass Index 25.39 05/11/2024 11:56 AM CDT Plan of Treatment Health Maintenance Due Date Last Done Comments Cervical Cancer Screening 2001 Chlamydia and Gonorrhea (GC/ CT) Screening 2001 Depression Screening 2001 Hepatitis C Screening 2001 DTaP/Tdap/Td Vaccine (1 - Tdap) 2012 Varicella Vaccines (1 of 2 - 13+ 2-dose series) 2014 Regular Well Visit/Exam 18-64 2019 Pneumococcal vaccine <65 (1 of 2 - PCV) 2020 Zoster Vaccine (1 of 2) 2020 Covid-19 Vaccine (2 - Pfizer risk series) 01/07/2022 12/17/2021 Influenza Vaccine (#1) 2025 , 09/18/2019, 07/31/2014, Additional history exists HPV Vaccines Completed 09/22/2015, 06/15/2014 Hepatitis B Screening Completed 05/21/2023, 023 Medical Devices Implanted Type Area Commercial Lawn Specialist Device Identifier Shelf Expiration Date Model / Serial / Lot Allosource L6.1 Cm Freeze Dried Graft Bone Costal Cartilage; Saline [id number] - [id number] - [id number] Implanted:Qty: 1 on 12/18/2023 by Juan Jeff MD at [facility] N/A: Nose Allosource 04/13/2028 [id number] / [id number] / Insurance [place] [employer] OOS Member Subscriber Plan / Payer (Ef fective 2020-Present) Name:Matilde Powers Relation to Subscriber:Child Name:RADHA GRANGER Date of :1973 (Home) Address: [address] [place] [address] [place] [address] Payer ID:[id number] (NAIC) Type:[employer] Address: [address] [facility] Care Teams Supervisor Fabrication Department Relationship Specialty Start Date End Date Ana Dudley NP [facility] [address] [address] PCP - General Nurse Practitioner 10/18/23 No, Physician 01/24/23 Nicolas Arreguin MD [address] [place] [address] Consulting Physician Rheumatology 10/18/23
[2025-08-02 12:12] VITALS: BP 116/73; PULSE 61; RESP 16; TEMP 36.6; O2SAT 100
--- NOTE | 2025-08-02 12:25 | ED_ITS ---
HPI - Female Genitourinary General Chief complaint: Urogenital-Female Stated complaint: Urinary Problem Time Seen by Provider: 08/02/25 12:25 Source: patient and RN notes reviewed Mode of arrival: ambulatory Limitations: no limitations History of Present Illness HPI Narrative: 25 year old female presents with concern for 2 week history of dysuria, cloudy urine, low back pain, suprapubic pressure. Reports she took a leftover amoxicillin. She denies fever, body aches, chills no sweats. Reports yesterday she did not feel good MD elicited complaint: UTI Related Data Allergies Allergy/AdvReac Type Severity Reaction Status Date / Time hydrocodone Allergy Hives Verified 08/02/25 12:06 brompheniramine (From AdvReac Hyperactive Verified 08/02/25 12:06 Dimetapp (brompheniramine-PPA)) phenylpropanolamine (From AdvReac Hyperactive Verified 08/02/25 12:06 Dimetapp (brompheniramine-PPA)) tramadol AdvReac Other Verified 03/31/24 14:23 Review of Systems Review of Systems: CONSTITUTIONAL: Denies malaise, chills, sweats, or fever. CARDIOVASCULAR: Denies chest pain, palpitations, or edema. RESPIRATORY: Denies cough or dyspnea. GASTROINTESTINAL: Denies abdominal pain, nausea, vomiting, diarrhea GENITOURINARY: Reports dysuria, frequency, suprapubic pressure. Denies flank pain or hematuria. SKIN: Denies rash or itching. MUSCULOSKELETAL: Reports low back pain. Denies myalgia. All systems reviewed & are unremarkable except as noted in HPI and below PMFSH Past Medical History Medical History (Updated 08/02/25 @ 12:28 by Debbie Hernández NP) Positive DENIS (antinuclear antibody) Alopecia Post covid-19 condition, unspecified Nasal crusting Nasal bone fracture Nasal trauma Post-operative pain Contraception management Depression Dizziness Palpitations Tonsillar hypertrophy Nasal septal deviation Hypertrophy of both inferior nasal turbinates Nasal congestion Nasal obstruction Allergies Syncope and collapse Enlarged tonsils Nexplanon removal (~10/01/22) ADHD Shoulder pain, right Ear infection Urinary reflux Asthma Surgical History Surgical History History of tonsillectomy History of ear surgery Hx of shoulder surgery right pectoral transfer, sternal head to scapula - volleyball injury History of placement of ear tubes Family History Family History Father Anxiety Depression Mother Anxiety Seizures Depression Grandparent Heart disease Asthma Cancer Depression Mother Depression Father Depression Other Breast cancer Emphysema lung Social History Social History (Updated 04/01/24 @ 22:15 by Aubree Andres MD) Social History: Caffeine- occasionally Smoking status: Never smoker Tobacco type: e-cigarettes/vaping Alcohol intake: current Drinks per week: 1 Alcohol use details: social Substance use: never Substance use type: does not use Lack of Transportation: No Lack of Food: Never True Current Housing: I Have Housing Concerned About Future Housing: No Difficulty Paying Gas/Electric Bills: No Difficulty Paying for Meds: No Currently Unemployed: No Education: High School Diploma/GED Difficulty w/ Childcare or Family Care: No Living arrangements: with family Occupation/Education: occupation Additional occupation/education comments: [employer] Gender identity (if verbalized by the patient): Female Sexual Orientation (if Verbalized by the Patient): Straight or Heterosexual Spiritual care concerns: No Agree to blood products: Yes Comments At time of signature, agree with nursing past medical, surgical, social and family history. There is no relevant family history pertinent to the presenting complaint Exam Narrative: GENERAL: Well-appearing, well-nourished, and in no acute distress. HEAD: Normocephalic. EYES: PERRLA, conjunctivae clear. NECK: Supple. No lymphadenopathy CHEST: Clear to auscultation. No respiratory distress. HEART: Regular rate and rhythm. ABDOMEN: Soft, nontender upon palpation, nondistended, no palpable or pulsatile masses, no guarding. No CVA tenderness SKIN: Warm, dry, no rash. NEURO: Alert and oriented x3. PSYCH: Normal mood and affect Course Course Emergency Course: Patient is aware of diagnosis, understands and agrees to treatment plan. Anticipatory guidance given. Patient agrees to follow-up as directed and is aware of reasons to seek care at the emergency department. Portions of this record may have been created with voice recognition software Level of Care: Express Care Visit Vital Signs Vital signs: Vital Signs Temperature 97.9 F 08/02/25 12:12 Pulse Rate 61 08/02/25 12:12 Respiratory Rate 16 08/02/25 12:12 Blood Pressure 116/73 08/02/25 12:12 Pulse Oximetry 100 08/02/25 12:12 Oxygen Delivery Room Air 08/02/25 12:12 Temperature 97.9 F 08/02/25 12:12 Pulse Rate 61 08/02/25 12:12 Respiratory Rate 16 08/02/25 12:12 Blood Pressure 116/73 08/02/25 12:12 Pulse Oximetry 100 08/02/25 12:12 Oxygen Delivery Room Air 08/02/25 12:12 Reviewed. MDM - Female Genitourinary MDM Narrative Medical decision making narrative: Exam findings and UA show no acute concerns or changes; patient is non-toxic appearing and is in no distress. Patient is appropriate for outpatient treatment and follow-up. Differential Diagnosis Differential diagnosis: Likely urinary tract infection and cystitis Critical Care Time Critical Care Time Critical Care Time: No Discharge Plan Discharge Clinical Impression: Urinary tract infection Patient Disposition: Home Condition: Stable Instructions: Antibiotic Form, Urinary Tract Infection in Women (ED) Additional Instructions: We will send a urine culture to the lab; if the culture identifies an organism that the prescribed antibiotic will not treat, you will receive a phone call from an urgent care staff member and an appropriate antibiotic will be prescribed. -Your symptoms should begin to improve within a day of starting antibiotics. But you should finish all the antibiotic pills you get. Otherwise your infection might come back. -Also recommend: increase water intake. Tylenol/ibuprofen as needed for pain or fever -Follow-up with your primary care provider for urine recheck or seek ER visit if condition worsens with high fever, nausea, vomiting and severe back pain. Patient Language: [place] Prescriptions: New sulfamethoxazole-trimethoprim 800-160 mg tablet 1 tablet PO Q12H 5 Days Qty: 10 0RF fluconazole 150 mg tablet 150 mg PO Q48H 3 Days Qty: 2 0RF Rx Instructions: take one dose now, and a second dose if symptoms remain in 48 hours Follow-up/Referrals: PHYSICIAN,PERFUME COMPOUNDER [Primary Care Provider, Internal Medicine] Time of Disposition: 12:30
[2025-08-02 12:38] LABS: EDUAAPPEAR Clear; EDUABILI Negative (Negative); EDUABLOOD 1+ (Negative); EDUACOLOR1 Light/Pale; EDUAGLUCOSE Negative (Negative); EDUAKETONE Negative (Negative); EDUALEUKO Trace (Negative); EDUANITRATE Negative (Negative); EDUAPH 6.5; EDUAPROTEIN Negative (Negative); EDUASPGRAVITY 1.010; EDUAUROBILI 0.2
== END 2025-08-02 12:37 | disposition home or self-care (01) ==
PROVIDERS: Emergency Provider Nurse Practitioner
DX: N39.0 Urinary tract infection, site not specified (principal); J45.909 Unspecified asthma, uncomplicated
CPT/HCPCS: 81003; 87086; 99213; G0463